=== PATIENT | male | born 1960 | race American Indian/Alaskan Native ===

== ENCOUNTER 2020-11-17 09:49 | Inpatient (IN) | payer OTHER ==
[2020-11-17] MEDS ORDERED: levETIRAcetam 1000 MG/NS 0.75% 1,000 MG/100 ML BAG IV ONE (09:54)
--- NOTE | 2020-11-17 10:00 | Emergency Department Report ---
ED Seizure HPI - General Stated Complaint: SEIZURE Time Seen by Provider: 11/17/20 09:53 Source: EMS Mode of arrival: Stretcher Limitations: Altered Mental Status - History of Present Illness Initial Comments: CC: seizure, altered mental status HPI: This is a 60 yo male with history of cocaine and alcohol dependence who presents with witnessed seizure at custodial. Hx limited due to patient's altered mental status. ED staff member is unable to contact custodialschool psychometrist . Resident of custodial witnessed patient falling to ground with generalized convulsions. Seizure witnessed per EMS upon their arrival. Patient was given 2 mg IV Ativan. Seizure ceased then recurred. Patient did have urinary incontience. Patient is nonverbal only moaning without purposeful movement. MD Complaint: seizure -: Sudden, This morning Description of Episode: loss of consciousness, tonic-clonic movement Witnessed:: Yes Seizure History: other (unknown medical history) Possible Precipitating Event: other (unknown medical history) - Related Data Home Medications Medication Instructions Recorded Confirmed Last Taken No Known Home Medications [No 11/17/20 11/17/20 Unknown Reported Home Medications] Allergies Allergy/AdvReac Type Severity Reaction Status Date / Time No Known Allergies Allergy Verified 11/17/20 10:54 ED Review of Systems ROS: Stated complaint: SEIZURE Other details as noted in HPI Comment: Unobtainable due to pts medical conditions (altered mental status) ED Past Medical Hx - Past Medical History Additional medical history: unable to obtain medical history - Surgical History Additional Surgical History: unable to obtain medical history - Medications Home Medications: Home Medications Medication Instructions Recorded Confirmed Last Taken Type No Known Home Medications [No 11/17/20 11/17/20 Unknown History Reported Home Medications] ED Physical Exam - General Limitations: Altered Mental Status General appearance: lethargic, other (GCS 3, no spontaneous movement, no response to sternal rub, moaning, eyes half-opened) - Head Head exam: Present: atraumatic, normocephalic - Eye Eye exam: Present: normal appearance, PERRL - ENT ENT exam: Present: mucous membranes moist - Neck Neck exam: Present: normal inspection, full ROM - Respiratory Respiratory exam: Present: respiratory distress, other (sonorous respiratons). Absent: wheezes, rales, rhonchi - Cardiovascular Cardiovascular Exam: Present: regular rate, normal rhythm, normal heart sounds - GI/Abdominal GI/Abdominal exam: Present: soft. Absent: distended, tenderness, guarding, rebound - Rectal Rectal exam: Present: normal inspection, other (stool covering buttocks and posterior thighs) - Extremities Exam Extremities exam: Present: normal inspection - Neurological Exam Neurological exam: Present: altered - Psychiatric Psychiatric exam: Present: flat affect - Skin Skin exam: Present: warm, dry, intact, normal color ED Course Vital Signs 11/17/20 11/17/20 11/17/20 10:04 10:20 10:56 Temperature 97.8 F Pulse Rate 95 H 102 H Respiratory 16 Rate Blood Pressure Blood Pressure 118/73 [Left] O2 Sat by Pulse 100 100 100 Oximetry 11/17/20 11:17 Temperature Pulse Rate 105 H Respiratory Rate Blood Pressure 151/84 Blood Pressure [Left] O2 Sat by Pulse 100 Oximetry - Reevaluation(s) Reevaluation #1: 11/17/20 11:23 Shortly after intubation, patient became more alert he moved all 4 extremities. - Intubation Time Out Performed: Yes Sedative: Etomidate Mg Given: 20 Paralytic: Succinylcholine Mg Given: 150 Laryngoscope: Jessika Size: 4 ET Tube Size: 8 Tube Secured Depth (cm): 24 Tube Secured Location: teeth Tube Placement Confirmation: visualized tube passing t Patient Tolerated Procedure: well Intubation Complications: none Additional Comments: ETT was advanced 1 cm ED Medical Decision Making - Lab Data Result diagrams: 11/17/20 10:32 11/17/20 10:32 - EKG Data -: EKG Interpreted by Ny EKG shows normal: sinus rhythm, axis Rate: tachycardia - EKG Data Interpretation: LVH 11/17/20 10:41 EKG obtained 1037 EKG interpreted by id Sinus tachycardia rate 100 bpm normal axis prolonged QTC positive LVH no ST elevation nonspecific T wave pattern - Radiology Data Radiology results: report reviewed, image reviewed CT head/brain wo con INDICATION / CLINICAL INFORMATION: 60 years Male; MAIN. TECHNIQUE: Routine CT head without contrast. All CT scans at this location are performed using CT dose reduction for ALARA by means of automated exposure control. COMPARISON: None. FINDINGS: BRAIN / INTRACRANIAL CONTENTS: Encephalomalacia seen in the right frontal and temporal lobes-would question history of prior trauma. Otherwise, no acute hemorrhage, mass effect, midline shift, hydrocephalus, or acute, large territorial infarct. No signs of significant atrophy or chronic infarct. No significant white matter abnormality seen. CRANIOCERVICAL JUNCTION: No significant abnormality. ORBITS: No significant abnormality of visualized orbits. SINUSES / MASTOIDS: Mild mucosal thickening seen in the ethmoids. There is also mild mucosal thickening suggested in the mastoids. ADDITIONAL FINDINGS: None. IMPRESSION: 1. No focal mass, hemorrhage, hydrocephalus, or acute, large territorial infarct. CXR: no acute findings, ETT 5.5 cm above tamica - Medical Decision Making Status Epilepticus with acute respiratory failure requiring intubation. According to attendant at custodial, patient is homeless. He has dependence to cocaine and alcohol. He left program and return 1 week ago for rehabilitation. This morning, patient was sweeping the floor with a broom. He suddenly fell to the ground and had a seizure. Kaylynn Briscoe I spoke with teleneurologist via phone consultation. Dr. Simmons teleneurologist recommended stat EEG and Keppra twice daily 1 g. Differential diagnosis includes: Seizure disorder due to significant encephalo malacia seen on CT scan, drug-induced seizure, alcohol withdrawal seizure, intentional overdose I have reviewed labs CBC within normal limits, AST ALT elevated. Metabolic acidosis with decreased serum bicarbonate nares mild hypokalemia urine screen negative Admitted to CCU Critical Care Time: Yes Critical care time in (mins) excluding proc time.: 40 Critical care attestation.: If time is entered above; I have spent that time in minutes in the direct care of this critically ill patient, excluding procedure time. 40 minutes of critical care time excluding procedures were used in the care of the patient. I came immediately to the bedside upon patient's arrival. I obtained history from EMS at the bedside. I discussed treatment plan with the nursing team members. I was concerned for airway compromise. Patient required multiple interventions and reassessments. ED Disposition Clinical Impression: Status epilepticus, Acute respiratory failure, Alcohol dependence, Cocaine dependence Disposition: OP ADMIT IP TO THIS HOSP Is pt being admited?: Yes Does the pt Need Aspirin: No Condition: Stable
[2020-11-17 10:39] LABS: Basophils # (Auto) 0.1 K/mm3 (0.0-0.1); Basophils % (Auto) 0.5 % (0.0-1.8); Eosinophils # (Auto) 0.1 K/mm3 (0.0-0.4); Hematocrit 40.1 % (35.5-45.6); Hemoglobin 13.5 gm/dl (11.8-15.2); Lymphocytes # (Auto) 3.6 K/mm3 (1.2-5.4); Lymphocytes % (Auto) 33.6 % (13.4-35.0); Mean Corpuscular HGB Conc 34 % (32-34); Mean Corpuscular Volume 97 fl (84-94); Monocytes # (Auto) 0.6 K/mm3 (0.0-0.8); Monocytes % (Auto) 5.5 % (0.0-7.3); Platelet Count 159 K/mm3 (140-440); Red Blood Count 4.15 M/mm3 (3.65-5.03); Red Cell Distribution Width 13.3 % (13.2-15.2)
[2020-11-17] MEDS ORDERED: ETOMIDATE 20 MG/10 ML INJ IV ONE (10:41)
[2020-11-17] MEDS ORDERED: SUCCINYLCHOLINE CHLORIDE 200 MG/10 ML INJ MDV IV ONE (10:41)
[2020-11-17 10:49] LABS: INR 1.07 (0.87-1.13)
[2020-11-17 10:50] LABS: Partial Thromboplastin Time 28.4 Sec. (24.2-36.6); Thrombin Time 20.3 Sec. (15.1-19.6)
--- NOTE | 2020-11-17 10:52 | Cat Scan Report ---
CT head/brain wo con INDICATION / CLINICAL INFORMATION: 60 years Male; MAIN. TECHNIQUE: Routine CT head without contrast. All CT scans at this location are performed using CT dos e reduction for ALARA by means of automated exposure control. COMPARISON: None. FINDINGS: BRAIN / INTRACRANIAL CONTENTS: Encephalomalacia seen in the right frontal and temporal lobes-would qu estion history of prior trauma. Otherwise, no acute hemorrhage, mass effect, midline shift, hydrocephalus, or acute, large territori al infarct. No signs of significant atrophy or chronic infarct. No significant white matter abnormali ty seen. CRANIOCERVICAL JUNCTION: No significant abnormality. ORBITS: No significant abnormality of visualized orbits. SINUSES / MASTOIDS: Mild mucosal thickening seen in the ethmoids. There is also mild mucosal thickeni ng suggested in the mastoids. ADDITIONAL FINDINGS: None. IMPRESSION: 1. No focal mass, hemorrhage, hydrocephalus, or acute, large territorial infarct. CODE STROKE: Exam Completed (SEED TESTER/CDT): 11/17/2020 9:22 AM Exam Reviewed (SEED TESTER/CDT): 9:40 AM Time of Communication (SEED TESTER/CDT): 9:46 AM Person Receiving Report: huong Grissom for Dr. Gomes Signer Name: Ryan Jeff MD, III Signed: 11/17/2020 10:47 AM Workstation Name: [id number]
[2020-11-17] MEDS ORDERED: LIP THERAPY VASELINE TP PRN (10:58)
[2020-11-17] MEDS ORDERED: MINERAL OIL/PETROLATUM, WHITE OPHTH OINT 3.5 GM OU PRN (10:58)
[2020-11-17 10:59] LABS: Bilirubin,Urine NEG (Negative); Blood,Urine SM (Negative); Color,Urine Yellow (Yellow); Hyaline Casts,Urine 8 /LPF; Mucus,Urine FEW /HPF; Sperm,Urine 3+ /HPF (NP); Urobilinogen,Urine < 2.0 mg/dL (<2.0)
[2020-11-17 11:01] LABS: Alanine Aminotransferase 135 units/L (7-56); Albumin 4.3 g/dL (3.9-5); BUN/Creatinine Ratio 9; Blood Urea Nitrogen 13 mg/dL (9-20); Calcium 8.6 mg/dL (8.4-10.2); Hemolysis Index 8
[2020-11-17 11:07] LABS: Amphetamine Screen,Urine Negative; Benzodiazepines Screen,Urine Negative; Cocaine Screen,Urine Negative; Methadone Screen,Urine Negative; Opiate Screen,Urine Negative
--- NOTE | 2020-11-17 11:21 | Emergency Department Report ---
Blank Doc - Documentation Documentation: [facility] Consult Note # Demographics Consult Type: Phone Only First Name: Mera Last Name: Octavia Date of : 1960 Age: 60 Gender: male Time of initial page (Bonita Time): 11-17-2020, 08:25 Time of return call (Bonita Time): 11-17-2020, 08:26 Phone Only Consult: 60yo M presents with seizure for at least 10 minutes. treated with 2mg of ativan. moaning only currently. given keppra 1gm recommend STAT EEG, if still having seizure will need cEEG and more AEDs such as fosphenytoin 20mg/kg. # Data Head CT: encephalomalacia # Assessment Impression: Seizure # Plan Diagnostic Test: EEG Medication: levetiracetam (Keppra) 1000 mg twice daily Other: seizure precautions, I have discussed my recommendations with the referring provider Disposition: admit # [employer] Telemedicine: phone only
--- NOTE | 2020-11-17 11:27 | XRay Report ---
CHEST 1 VIEW 11/17/2020 11:18 AM INDICATION / CLINICAL INFORMATION: ETT placement. COMPARISON: None available. FINDINGS: SUPPORT DEVICES: An ET tube terminates 5.5 cm above the tamica. HEART / MEDIASTINUM: No significant abnormality. LUNGS / PLEURA: Clear lungs. No significant pleural effusion. No pneumothorax. ADDITIONAL FINDINGS: No significant additional findings. IMPRESSION: 1. No acute abnormality of the chest. 2. Satisfactory positioning of the ET tube. Signer Name: Mati Gamez MD Signed: 11/17/2020 11:23 AM Workstation Name: [id number]
[2020-11-17 11:28] LABS: Cannabinoid Screen,Urine Negative
[2020-11-17] MEDS ORDERED: MIDAZOLAM 2 MG/2 ML INJ IV PRN (12:09)
[2020-11-17] MEDS ORDERED: HYDROmorphone 1 MG/1 ML INJ IV PRN (12:55)
[2020-11-17] MEDS ORDERED: SODIUM CHLORIDE 0.9% 1000 ML 1,000 ML IV ONE (12:55)
[2020-11-17] MEDS ORDERED: MIDAZOLAM 100 MG in SODIUM CHLORIDE 0.9% 80 ML IV SCH (13:00)
[2020-11-17 13:22] LABS: ABG Base Excess -0.6 mmol/L (-2.0-3.0); ABG HCO3 24.8 mmol/L (20.0-26.0); ABG Methemoglobin 0.5 % (0.0-1.5); ABG Oxygen Saturation 99.1 % (95.0-99.0); ABG PH 7.369 pH Units (7.350-7.450); ABG PO2 185.6 mm Hg (80.0-90.0)
--- NOTE | 2020-11-17 16:15 | Consultation ---
History of Present Illness Consult date: 11/17/20 Reason for consult: other (resp fail, intubated Sz ) History of present illness: 11/17/20 see ER notes 60 yo M had sz and fell was unresponsive but woke up when/after intubation req'd sedation now on vent/sedated stable vs no other history avail apparently EhOH/cocaine history? Medications and Allergies Allergies Allergy/AdvReac Type Severity Reaction Status Date / Time No Known Allergies Allergy Verified 11/17/20 10:54 Home Medications Medication Instructions Recorded Confirmed Last Taken Type No Known Home Medications [No 11/17/20 11/17/20 Unknown History Reported Home Medications] Active Meds: Active Medications Hydromorphone HCl (Hydromorphone 1 Mg/1 Ml Inj) 0.5 mg IV ONCE PRN PRN Reason: Pain , Severe (7-10) Hydrophilic Ointment (Lip Therapy Vaseline) 1 applic TP Q2HR PRN PRN Reason: Dry Lips Propofol (Diprivan 10 Mg/Ml) 1,000 mg in 100 mls @ 2.25 mls/hr IV TITR JOSE G; Protocol Last Titration: 11/17/20 14:14 Dose: 50 mcg/kg/min, 22.5 mls/hr Documented by: Midazolam HCl 100 mg/ Sodium (Chloride) 100 mls @ 2 mls/hr IV TITR JOSE G; Protocol Last Titration: 11/17/20 15:06 Dose: 3 mg/hr, 3 mls/hr Documented by: Sodium Chloride (Nacl 0.9% 1000 Ml) 1,000 mls @ 150 mls/hr IV ONCE ONE Stop: 11/17/20 19:34 Last Admin: 11/17/20 13:20 Dose: 150 mls/hr Documented by: Midazolam HCl (Midazolam 2 Mg/2 Ml Inj) 2 mg IV Q10MIN PRN PRN Reason: Sedation Multi-Ingred Cream/Lotion/Oil/Oint (Mineral Oil/Petrolatum, White Ophth Oint 3.5 Gm) 1 applic OU Q4HR PRN PRN Reason: Dry Eye(s) Review of Systems ROS unobtainable: due to endotracheal tube, due to mental status Physical Examination Vital signs: Vital Signs Pulse Ox 100 11/17/20 10:04 General appearance: other (sedated, unresponsive intubated) ENT: other (intubated) Ascultation: Bilateral: diminished breath sounds Musculoskeletal: no deformities non-focal exam, unable to assess, other (unresponsive) Results - Laboratory Findings CBC and BMP: 11/17/20 10:32 11/17/20 10:32 ABG ABG pH 7.369 pH Units (7.350-7.450) 11/17/20 13:15 ABG pCO2 44.0 mm Hg 11/17/20 13:15 ABG pO2 185.6 mm Hg (80.0-90.0) H 11/17/20 13:15 ABG O2 Saturation 99.1 % (95.0-99.0) H 11/17/20 13:15 PT/INR, D-dimer PT 13.8 Sec. (12.2-14.9) 11/17/20 10:32 INR 1.07 (0.87-1.13) 11/17/20 10:32 Abnormal lab findings: Abnormal Labs 11/17/20 11/17/20 11/17/20 09:57 10:32 10:32 MCV 97 H MCH 33 H Thrombin Time 20.3 H ABG pO2 ABG O2 Saturation ABG Hemoglobin Potassium Carbon Dioxide Creatinine Glucose POC Glucose 191 H AST ALT Salicylates Acetaminophen 11/17/20 11/17/20 11/17/20 10:32 10:32 10:32 MCV MCH Thrombin Time ABG pO2 ABG O2 Saturation ABG Hemoglobin Potassium 3.3 L Carbon Dioxide 16 L Creatinine 1.4 H Glucose 235 H POC Glucose AST 125 H ALT 135 H Salicylates < 0.3 L Acetaminophen 5.0 L 11/17/20 13:15 MCV MCH Thrombin Time ABG pO2 185.6 H ABG O2 Saturation 99.1 H ABG Hemoglobin 13.1 L Potassium Carbon Dioxide Creatinine Glucose POC Glucose AST ALT Salicylates Acetaminophen - Diagnostic Findings Chest x-ray: image reviewed (ET clear ) Assessment and Plan 11/17 encephalopathy sedation intubation w/up in progress stable vs continue vent support etc try to get further info
[2020-11-17] MEDS: fentaNYL 100 MCG/2 ML INJ IV PRN ×2 (17:44→23:08)
[2020-11-17] MEDS ORDERED: fentaNYL DRIP Premix 2,000 MCG/100 ML BAG IV SCH (18:00)
--- NOTE | 2020-11-17 18:36 | History and Physical Report ---
History of Present Illness Date of examination: 11/17/20 Date of admission: 11/17/20 12:02 Chief complaint: Altered mental status and seizures since a.m. History of present illness: 50-year-old male with a history of alcohol dependence who lives at a [facility]. Since a.m. patient has been having recurrent seizures with altered sensorium. In the ER patient was having seizures and altered sensorium. Was intubated because of protection of airway. No fever or chills. No exposure to coronavirus. No known exacerbating or relieving factors. - Past Medical History unable to obtain medical history - Surgical History Additional Surgical History: unable to obtain medical history - Medications Home Medications: Home Medications Medication Instructions Recorded Confirmed Last Taken Type No Known Home Medications [No 11/17/20 11/17/20 Unknown History Reported Home Medications] Review of Systems ROS: Constitutional seizures and altered sensorium HEENT no sore throat no post nasal drip no diplopia Neck no neck stiffness no lymph gland enlargement Chest and lungs no shortness of breath cough or wheezing CVS no chest pain no diaphoresis no palpitations GI no nausea no vomiting no diarrhea Genitourinary system no dysuria no flank pain Musculoskeletal system no muscle pains no joint pains [employer] no syncope no seizures Skin no rash no itching Psychiatric seizures and altered sensorium Hematologic no lymphedema or bruising Endocrine no polydipsia no polyuria no cold intolerance no heat intolerance Medications and Allergies Allergies Allergy/AdvReac Type Severity Reaction Status Date / Time No Known Allergies Allergy Verified 11/17/20 10:54 Home Medications Medication Instructions Recorded Confirmed Last Taken Type No Known Home Medications [No 11/17/20 11/17/20 Unknown History Reported Home Medications] Active Meds: Active Medications Fentanyl (Fentanyl 100 Mcg/2 Ml Inj) 50 mcg IV Q10MIN PRN PRN Reason: ANALGESIA Last Admin: 11/17/20 17:44 Dose: 50 mcg Documented by: Hydromorphone HCl (Hydromorphone 1 Mg/1 Ml Inj) 0.5 mg IV ONCE PRN PRN Reason: Pain , Severe (7-10) Hydrophilic Ointment (Lip Therapy Vaseline) 1 applic TP Q2HR PRN PRN Reason: Dry Lips Propofol (Diprivan 10 Mg/Ml) 1,000 mg in 100 mls @ 2.25 mls/hr IV TITR JOSE G; P rotocol Last Titration: 11/17/20 14:14 Dose: 50 mcg/kg/min, 22.5 mls/hr Documented by: Midazolam HCl 100 mg/ Sodium (Chloride) 100 mls @ 2 mls/hr IV TITR JOSE G; Protocol Last Titration: 11/17/20 15:06 Dose: 3 mg/hr, 3 mls/hr Documented by: Sodium Chloride (Nacl 0.9% 1000 Ml) 1,000 mls @ 150 mls/hr IV ONCE ONE Stop: 11/17/20 19:34 Last Admin: 11/17/20 13:20 Dose: 150 mls/hr Documented by: Fentanyl Citrate (Fentanyl Drip Premix) 2,000 mcg in 100 mls @ 3.75 mls/hr IV TITR JOSE G; Protocol Last Admin: 11/17/20 17:43 Dose: 1 mcg/kg/hr, 3.75 mls/hr Documented by: Midazolam HCl (Midazolam 2 Mg/2 Ml Inj) 2 mg IV Q10MIN PRN PRN Reason: Sedation Multi-Ingred Cream/Lotion/Oil/Oint (Mineral Oil/Petrolatum, White Ophth Oint 3.5 Gm) 1 applic OU Q4HR PRN PRN Reason: Dry Eye(s) Exam - Constitutional Vitals: Temp Pulse Resp BP Pulse Ox 97.8 F 70 18 131/82 100 11/17/20 10:56 11/17/20 18:07 11/17/20 18:07 11/17/20 17:46 11/17/20 18:07 General appearance: Present: no acute distress, well-nourished - EENT Eyes: Present: PERRL ENT: hearing intact, clear oral mucosa - Neck Neck: Present: supple, normal ROM - Respiratory Respiratory effort: normal Respiratory: bilateral: CTA - Cardiovascular Heart rate: 78 Rhythm: regular Heart Sounds: Present: S1 & S2. Absent: rub, click - Extremities Extremities: pulses symmetrical, No edema Peripheral Pulses: within normal limits - Abdominal General gastrointestinal: Present: soft, non-tender, non-distended, normal bowel sounds Male genitourinary: Present: normal - Rectal Rectal Exam: deferred - Integumentary Integumentary: Present: clear, warm, dry - Musculoskeletal Musculoskeletal: gait normal, strength equal bilaterally - Psychiatric Psychiatric: appropriate mood/affect, intact judgment & insight - Neurologic Neurologic: CNII-XII intact, moves all extremities HEART Score - HEART Score Troponin: Troponin T < 0.010 ng/mL (0.00-0.029) 11/17/20 10:32 Results - Labs CBC & Chem 7: 11/18/20 04:27 11/18/20 04:27 Labs: Laboratory Last Values WBC 10.9 K/mm3 (4.5-11.0) 11/17/20 10:32 RBC 4.15 M/mm3 (3.65-5.03) 11/17/20 10:32 Hgb 13.5 gm/dl (11.8-15.2) 11/17/20 10:32 Hct 40.1 % (35.5-45.6) 11/17/20 10:32 MCV 97 fl (84-94) H 11/17/20 10:32 MCH 33 pg (28-32) H 11/17/20 10:32 MCHC 34 % (32-34) 11/17/20 10:32 RDW 13.3 % (13.2-15.2) 11/17/20 10:32 Plt Count 159 K/mm3 (140-440) 11/17/20 10:32 Lymph % (Auto) 33.6 % (13.4-35.0) 11/17/20 10:32 [place] % (Auto) 5.5 % (0.0-7.3) 11/17/20 10:32 Eos % (Auto) 1.0 % (0.0-4.3) 11/17/20 10:32 Baso % (Auto) 0.5 % (0.0-1.8) 11/17/20 10:32 Lymph # (Auto) 3.6 K/mm3 (1.2-5.4) 11/17/20 10:32 [place] # (Auto) 0.6 K/mm3 (0.0-0.8) 11/17/20 10:32 Eos # (Auto) 0.1 K/mm3 (0.0-0.4) 11/17/20 10:32 Baso # (Auto) 0.1 K/mm3 (0.0-0.1) 11/17/20 10:32 Seg Neutrophils % 59.4 % (40.0-70.0) 11/17/20 10:32 Seg Neutrophils # 6.4 K/mm3 (1.8-7.7) 11/17/20 10:32 PT 13.8 Sec. (12.2-14.9) 11/17/20 10:32 INR 1.07 (0.87-1.13) 11/17/20 10:32 APTT 28.4 Sec. (24.2-36.6) 11/17/20 10:32 Thrombin Time 20.3 Sec. (15.1-19.6) H 11/17/20 10:32 ABG pH 7.369 pH Units (7.350-7.450) 11/17/20 13:15 ABG pCO2 44.0 mm Hg 11/17/20 13:15 ABG pO2 185.6 mm Hg (80.0-90.0) H 11/17/20 13:15 ABG HCO3 24.8 mmol/L (20.0-26.0) 11/17/20 13:15 ABG O2 Saturation 99.1 % (95.0-99.0) H 11/17/20 13:15 ABG O2 Content 18.2 (0.0-44) 11/17/20 13:15 ABG Base Excess -0.6 mmol/L (-2.0-3.0) 11/17/20 13:15 ABG Hemoglobin 13.1 gm/dl (14.0-18.0) L 11/17/20 13:15 ABG Carboxyhemoglobin 1.4 % (0.0-5.0) 11/17/20 13:15 ABG Methemoglobin 0.5 % (0.0-1.5) 11/17/20 13:15 Oxyhemoglobin 97.2 % (95.0-99.0) 11/17/20 13:15 FiO2 40 % 11/17/20 13:15 Sodium 138 mmol/L (137-145) 11/17/20 10:32 Potassium 3.3 mmol/L (3.6-5.0) L 11/17/20 10:32 Chloride 99.0 mmol/L (98-107) 11/17/20 10:32 Carbon Dioxide 16 mmol/L (22-30) L 11/17/20 10:32 Anion Gap 26 mmol/L 11/17/20 10:32 BUN 13 mg/dL (9-20) 11/17/20 10:32 Creatinine 1.4 mg/dL (0.8-1.3) H 11/17/20 10:32 Estimated GFR > 60 ml/min 11/17/20 10:32 BUN/Creatinine Ratio 9 % 11/17/20 10:32 Glucose 235 mg/dL (75-100) H 11/17/20 10:32 POC Glucose 191 mg/dL (70-105) H 11/17/20 09:57 Calcium 8.6 mg/dL (8.4-10.2) 11/17/20 10:32 Total Bilirubin 0.60 mg/dL (0.1-1.2) 11/17/20 10:32 AST 125 units/L (5-40) H 11/17/20 10:32 ALT 135 units/L (7-56) H 11/17/20 10:32 Alkaline Phosphatase 102 units/L (35-129) 11/17/20 10:32 Troponin T < 0.010 ng/mL (0.00-0.029) 11/17/20 10:32 Total Protein 7.4 g/dL (6.3-8.2) 11/17/20 10:32 Albumin 4.3 g/dL (3.9-5) 11/17/20 10:32 Albumin/Globulin Ratio 1.4 % 11/17/20 10:32 Urine Color Yellow (Yellow) 11/17/20 Unknown Urine Turbidity Slightly-cloudy (Clear) 11/17/20 Unknown Urine pH 6.0 (5.0-7.0) 11/17/20 Unknown Ur Specific [place] 1.012 (1.003-1.030) 11/17/20 Unknown Urine Protein 30 mg/dl mg/dL (Negative) 11/17/20 Unknown Urine Glucose (UA) 50 mg/dL (Negative) 11/17/20 Unknown Urine Ketones Neg mg/dL (Negative) 11/17/20 Unknown Urine Blood Sm (Negative) 11/17/20 Unknown Urine Nitrite Neg (Negative) 11/17/20 Unknown Urine Bilirubin Neg (Negative) 11/17/20 Unknown Urine Urobilinogen < 2.0 mg/dL (<2.0) 11/17/20 Unknown Ur Leukocyte Esterase Neg (Negative) 11/17/20 Unknown Urine WBC (Auto) 1.0 /HPF (0.0-6.0) 11/17/20 Unknown Urine RBC (Auto) 2.0 /HPF (0.0-6.0) 11/17/20 Unknown Hyaline Casts 8 /LPF 11/17/20 Unknown Urine Mucus Few /HPF 11/17/20 Unknown Urine Sperm 3+ /HPF (SET UP [employer] MACHINE) 11/17/20 Unknown Salicylates < 0.3 mg/dL (2.8-20.0) L 11/17/20 10:32 Urine Opiates Screen Negative 11/17/20 Unknown Urine Methadone Screen Negative 11/17/20 Unknown Acetaminophen 5.0 ug/mL (10.0-30.0) L 11/17/20 10:32 Ur Barbiturates Screen Negative 11/17/20 Unknown Ur Phencyclidine Scrn Negative 11/17/20 Unknown Ur Amphetamines Screen Negative 11/17/20 Unknown U Benzodiazepines Scrn Negative 11/17/20 Unknown Urine Cocaine Screen Negative 11/17/20 Unknown U Marijuana (THC) Screen Negative 11/17/20 Unknown Drugs of Abuse Note Disclamer 11/17/20 Unknown Plasma/Serum Alcohol < 0.01 % (0-0.07) 11/17/20 10:32 Short CBC 11/17/20 11/18/20 Range/Units 10:32 04:27 WBC 10.9 12.3 H (4.5-11.0) K/mm3 Hgb 13.5 13.1 (11.8-15.2) gm/dl Hct 40.1 40.0 (35.5-45.6) % Plt Count 159 129 L (140-440) K/mm3 BMP 11/17/20 11/18/20 10:32 04:27 Sodium 138 140 Potassium 3.3 L 3.9 Chloride 99.0 108.3 H Carbon Dioxide 16 L 19 L BUN 13 8 L Creatinine 1.4 H 0.8 Glucose 235 H 90 Calcium 8.6 8.4 Cardiac Enzymes 11/17/20 Range/Units 10:32 Troponin T < 0.010 (0.00-0.029) ng/mL Liver Function 11/17/20 11/18/20 Range/Units 10:32 04:27 Total Bilirubin 0.60 0.80 (0.1-1.2) mg/dL AST 125 H 84 H (5-40) units/L ALT 135 H 103 H (7-56) units/L Alkaline Phosphatase 102 61 (35-129) units/L Albumin 4.3 3.8 L (3.9-5) g/dL Urine 11/17/20 Range/Units Unknown Urine Color Yellow (Yellow) Urine pH 6.0 (5.0-7.0) Ur Specific [place] 1.012 (1.003-1.030) Urine Protein 30 mg/dl (Negative) mg/dL Urine Glucose (UA) 50 (Negative) mg/dL - Imaging and Cardiology CT Scan - head: report reviewed Imaging and Cardiology: Chest x-ray No acute abnormalities Satisfactory positioning of the ET tube Head CT No acute findings Assessment and Plan Assessment and plan: Critical care statement The high probability OF a clinically significant sudden or life-threatening deterioration of the cardiorespiratory system and endocrine system required my full and direct attention, intervention and postoperative management. The aggregate critical care time was 40 minutes. The time is in addition to time spent performing reported procedures but includes the followin: Data review and interpretation 2: Patient assessment and monitoring of vital signs 3: Documentation 4:: Medication orders and management Advance Directives: Yes VTE prophylaxis?: Chemical (Full code) Plan of care discussed with patient/family: Yes - Patient Problems (1) Acute encephalopathy Current Visit: Yes Status: Acute Plan to address problem: Secondary to recurrent seizures No metabolic causes (2) Status epilepticus Current Visit: Yes Status: Acute Plan to address problem: IV Keppra and IV Vimpat if necessary (3) Respiratory failure with hypoxia Current Visit: Yes Status: Acute Qualifiers: Chronicity: acute Qualified Code(s): J96.01 - Acute respiratory failure with hypoxia Plan to address problem: Patient intubated for protection of airway Vent management [employer] consulted (4) Alcohol dependence Current Visit: Yes Status: Chronic Plan to address problem: CIWA protocol initiated (5) Cocaine dependence Current Visit: Yes Status: Chronic Plan to address problem: Patient to be counseled about cocaine dependence On CIWA protocol for alcohol dependence (6) DVT prophylaxis Current Visit: Yes Status: Acute Plan to address problem: On heparin and GI prophylaxis
[2020-11-17] MEDS ORDERED: MORPHINE 2 MG/1 ML INJ IV PRN (18:38)
[2020-11-17] MEDS ORDERED: ACETAMINOPHEN 325 MG TAB PO PRN (18:38)
[2020-11-17] MEDS ORDERED: METOCLOPRAMIDE 10 MG/2 ML INJ IV PRN (18:38)
[2020-11-17] MEDS ORDERED: ONDANSETRON 4 MG/2 ML INJ IV PRN (18:38)
[2020-11-17] MEDS ORDERED: SODIUM BICARBONATE 325 MG TAB FEEDTUBE PRN (18:44)
[2020-11-17] MEDS ORDERED: SIMPLE SYRUP 15 ML FEEDTUBE PRN ×2 (18:44)
[2020-11-17] MEDS ORDERED: LIPASE 10,500/PROTEASE 25,000/AMYLASE 43,750 (UNITS) DR CAP FEEDTUBE PRN (18:44)
[2020-11-17] MEDS ORDERED: SODIUM CHLORIDE 0.9% 1000 ML 1,000 ML IV SCH (18:45)
[2020-11-17] MEDS: FAMOTIDINE 20 MG/2 ML INJ IV SCH (22:37)
[2020-11-18] MEDS ORDERED: SODIUM BICARBONATE 325 MG TAB FEEDTUBE PRN ×2 (00:15→11:03)
[2020-11-18] MEDS ORDERED: SIMPLE SYRUP 15 ML FEEDTUBE PRN ×4 (00:15→11:03)
[2020-11-18] MEDS ORDERED: LIPASE 10,500/PROTEASE 25,000/AMYLASE 43,750 (UNITS) DR CAP FEEDTUBE PRN ×2 (00:15→11:03)
[2020-11-18] MEDS: INSULIN LISPRO 100 UNIT/ML SUB-Q SCH ×2 (01:45→10:51)
--- NOTE | 2020-11-18 02:20 | XRay Report ---
. XR chest 1V ap INDICATION / CLINICAL INFORMATION: follow up respiratory failure. COMPARISON: Radiograph from yesterday. FINDINGS: SUPPORT DEVICES: Endotracheal tube terminates appropriately at the level of the clavicular heads. En teric tube courses beneath the diaphragm. HEART / MEDIASTINUM: Unchanged. LUNGS / PLEURA: Lung parenchyma is not significantly changed. No pneumothorax. ADDITIONAL FINDINGS: No significant additional findings. IMPRESSION: 1. Interval placement of enteric tube which is coursing beneath the diaphragm. Side-port is just bene ath the GE junction. Otherwise, no change. Signer Name: Carlos Riley MD Signed: 11/18/2020 2:16 AM Workstation Name: [id number]
[2020-11-18] MEDS: levETIRAcetam 1,000 MG in DEXTROSE 5% IN WATER 100 ML IV SCH ×3 (02:24→22:26)
[2020-11-18] MEDS: POTASSIUM CHLORIDE 10 MEQ 10 MEQ/100 ML BAG IV SCH ×2 (02:24→08:49)
[2020-11-18] MEDS: SODIUM CHLORIDE 0.9% 1000 ML 1,000 ML IV SCH ×2 (02:40→06:08)
[2020-11-18 04:53] LABS: Basophils % (Auto) 0.4 % (0.0-1.8); Eosinophils % (Auto) 0.2 % (0.0-4.3); Hemoglobin 13.1 gm/dl (11.8-15.2); Lymphocytes % (Auto) 8.5 % (13.4-35.0); Mean Corpuscular HGB Conc 33 % (32-34); Mean Corpuscular Volume 96 fl (84-94); Monocytes # (Auto) 0.9 K/mm3 (0.0-0.8); Monocytes % (Auto) 7.6 % (0.0-7.3); Platelet Count 129 K/mm3 (140-440); Red Blood Count 4.18 M/mm3 (3.65-5.03); Red Cell Distribution Width 13.4 % (13.2-15.2)
[2020-11-18 05:51] LABS: Alanine Aminotransferase 103 units/L (7-56); Albumin 3.8 g/dL (3.9-5); BUN/Creatinine Ratio 10; Blood Urea Nitrogen 8 mg/dL (9-20); Calcium 8.4 mg/dL (8.4-10.2); Hemolysis Index 16
[2020-11-18] MEDS ORDERED: POTASSIUM CHLORIDE 10 MEQ 10 MEQ/100 ML BAG IV ONE (08:43)
[2020-11-18] MEDS: FAMOTIDINE 20 MG/2 ML INJ IV SCH ×2 (10:30→22:23)
[2020-11-18] MEDS ORDERED: DEXTROSE 50% IN WATER (25GM) 50 ML SYRINGE IV ONE (10:44)
--- NOTE | 2020-11-18 11:58 | Progress Note ---
Assessment and Plan Assessment and plan: Critical care statement The high probability OF a clinically significant sudden or life-threatening dete rioration of the cardiorespiratory system and endocrine system required my full and direct attention, intervention and postoperative management. The aggregate critical care time was 40 minutes. The time is in addition to time spent performing reported procedures but includes the followin: Data review and interpretation 2: Patient assessment and monitoring of vital signs 3: Documentation 4:: Medication orders and management Advance Directives: Yes VTE prophylaxis?: Chemical (Full code) Plan of care discussed with patient/family: Yes - Patient Problems (1) Acute encephalopathy Current Visit: Yes Status: Acute Plan to address problem: Secondary to recurrent seizures UDS negative (2) Status epilepticus Current Visit: Yes Status: Acute Plan to address problem: Continue IV Keppra and IV Vimpat CT head negative for any acute stroke-infarcts or hemorrhage EEG. Patient may need continuous EEG monitoring if EEG shows seizures. MRI brain with and without contrast when more stable Neurology consult placed. However, neurology is not available this weekend (3) Respiratory failure with hypoxia Current Visit: Yes Status: Acute Qualifiers: Chronicity: acute Qualified Code(s): J96.01 - Acute respiratory failure with hypoxia Plan to address problem: Patient intubated for protection of airway Vent management [employer] Clerk on board (4) STEPHANY Current Visit: Yes Status: Chronic Plan to address problem: Secondary to vasomotor nephropathy Renal function improved Continue to monitor renal function (5) Cocaine and alcohol dependence Current Visit: Yes Status: Chronic Plan to address problem: Patient to be counseled about cocaine dependence On CIWA protocol for alcohol dependence (6) DVT prophylaxis Current Visit: Yes Status: Acute Plan to address problem: On heparin and GI prophylaxis History Interval history: 11/18. Patient remains intubated and is on sedatives. Critical care on board. Hospitalist Physical - Physical exam Narrative exam: VITAL SIGNS: Reviewed. GENERAL: Sedated HEAD: No signs of head trauma. EYES: Pupils are equal. Extraocular motions intact. MOUTH: Oropharynx is normal. NECK: No adenopathy, no JVD. CHEST: Chest with diminished breath sounds bilaterally. No wheezes, rales, or rhonchi. CARDIAC: normal S1 and S2, without murmurs, gallops, or rubs. ABDOMEN: Soft, non tender and non distended. No rebound or guarding, and no masses palpated. Bowel Sounds normal. MUSCULOSKELETAL: No edema NEUROLOGIC EXAM: Sedated and intubated SKIN: No obvious lesions - Constitutional Vitals: Temp Pulse Resp BP Pulse Ox 97.6 F 65 18 140/80 100 11/18/20 01:37 11/18/20 11:39 11/18/20 07:58 11/18/20 11:39 11/18/20 11:39 HEART Score - HEART Score Troponin: Troponin T < 0.010 ng/mL (0.00-0.029) 11/17/20 10:32 Results - Labs CBC & Chem 7: 11/18/20 04:27 11/18/20 04:27 Labs: Laboratory Last Values WBC 12.3 K/mm3 (4.5-11.0) H 11/18/20 04:27 RBC 4.18 M/mm3 (3.65-5.03) 11/18/20 04:27 Hgb 13.1 gm/dl (11.8-15.2) 11/18/20 04:27 Hct 40.0 % (35.5-45.6) 11/18/20 04:27 MCV 96 fl (84-94) H 11/18/20 04:27 MCH 31 pg (28-32) 11/18/20 04:27 MCHC 33 % (32-34) 11/18/20 04:27 RDW 13.4 % (13.2-15.2) 11/18/20 04:27 Plt Count 129 K/mm3 (140-440) L 11/18/20 04:27 Lymph % (Auto) 8.5 % (13.4-35.0) L 11/18/20 04:27 [place] % (Auto) 7.6 % (0.0-7.3) H 11/18/20 04:27 Eos % (Auto) 0.2 % (0.0-4.3) 11/18/20 04:27 Baso % (Auto) 0.4 % (0.0-1.8) 11/18/20 04:27 Lymph # (Auto) 1.0 K/mm3 (1.2-5.4) L 11/18/20 04:27 [place] # (Auto) 0.9 K/mm3 (0.0-0.8) H 11/18/20 04:27 Eos # (Auto) 0.0 K/mm3 (0.0-0.4) 11/18/20 04:27 Baso # (Auto) 0.0 K/mm3 (0.0-0.1) 11/18/20 04:27 Seg Neutrophils % 83.3 % (40.0-70.0) H 11/18/20 04:27 Seg Neutrophils # 10.3 K/mm3 (1.8-7.7) H 11/18/20 04:27 PT 13.8 Sec. (12.2-14.9) 11/17/20 10:32 INR 1.07 (0.87-1.13) 11/17/20 10:32 APTT 28.4 Sec. (24.2-36.6) 11/17/20 10:32 Thrombin Time 20.3 Sec. (15.1-19.6) H 11/17/20 10:32 ABG pH 7.378 (7.320-7.450) 11/18/20 04:00 POC ABG pCO2 37.4 mmHg (32.0-48.0) 11/18/20 04:00 ABG pCO2 44.0 mm Hg 11/17/20 13:15 POC ABG pO2 103.8 mmHg (83-108) 11/18/20 04:00 ABG pO2 185.6 mm Hg (80.0-90.0) H 11/17/20 13:15 POC ABG HCO3 21.5 11/18/20 04:00 ABG HCO3 24.8 mmol/L (20.0-26.0) 11/17/20 13:15 ABG O2 Saturation 97.9 (0-100) 11/18/20 04:00 ABG O2 Content 18.2 (0.0-44) 11/17/20 13:15 POC ABG Base Excess -3.1 11/18/20 04:00 ABG Base Excess -0.6 mmol/L (-2.0-3.0) 11/17/20 13:15 ABG Hemoglobin 13.8 (12.0-17.5) 11/18/20 04:00 ABG Carboxyhemoglobin 1.4 % (0.0-5.0) 11/17/20 13:15 ABG Methemoglobin 0.5 % (0.0-1.5) 11/17/20 13:15 ABG Sodium 139.7 mmol/L (136.0-145.0) 11/18/20 04:00 ABG Potassium 3.5 mmol/L (3.40-4.50) 11/18/20 04:00 ABG Chloride 110.0 mmol/L (98-107) H 11/18/20 04:00 ABG Glucose 86 mg/dL (65-95) 11/18/20 04:00 Oxyhemoglobin 97.2 % (95.0-99.0) 11/17/20 13:15 FiO2 40 % 11/17/20 13:15 FiO2 % 30.0 11/18/20 04:00 Sodium 140 mmol/L (137-145) 11/18/20 04:27 Potassium 3.9 mmol/L (3.6-5.0) 11/18/20 04:27 Chloride 108.3 mmol/L (98-107) H 11/18/20 04:27 Carbon Dioxide 19 mmol/L (22-30) L 11/18/20 04:27 Anion Gap 17 mmol/L 11/18/20 04:27 BUN 8 mg/dL (9-20) L 11/18/20 04:27 Creatinine 0.8 mg/dL (0.8-1.3) 11/18/20 04:27 Estimated GFR > 60 ml/min 11/18/20 04:27 BUN/Creatinine Ratio 10 % 11/18/20 04:27 Glucose 90 mg/dL (75-100) 11/18/20 04:27 POC Glucose 59 mg/dL (70-105) L 11/18/20 10:39 Hemoglobin A1c 6.2 % (4-6) H 11/18/20 04:27 Calcium 8.4 mg/dL (8.4-10.2) 11/18/20 04:27 Total Bilirubin 0.80 mg/dL (0.1-1.2) 11/18/20 04:27 AST 84 units/L (5-40) H 11/18/20 04:27 ALT 103 units/L (7-56) H 11/18/20 04:27 Alkaline Phosphatase 61 units/L (35-129) 11/18/20 04:27 Troponin T < 0.010 ng/mL (0.00-0.029) 11/17/20 10:32 Total Protein 6.3 g/dL (6.3-8.2) 11/18/20 04:27 Albumin 3.8 g/dL (3.9-5) L 11/18/20 04:27 Albumin/Globulin Ratio 1.5 % 11/18/20 04:27 Arterial Blood Glucose 86 mg/dL (65-95) 11/18/20 04:00 Arterial Blood Ionized Calcium 4.6 mg/dL (4.6-5.3) 11/18/20 04:00 Urine Color Yellow (Yellow) 11/17/20 Unknown Urine Turbidity Slightly-cloudy (Clear) 11/17/20 Unknown Urine pH 6.0 (5.0-7.0) 11/17/20 Unknown Ur Specific [place] 1.012 (1.003-1.030) 11/17/20 Unknown Urine Protein 30 mg/dl mg/dL (Negative) 11/17/20 Unknown Urine Glucose (UA) 50 mg/dL (Negative) 11/17/20 Unknown Urine Ketones Neg mg/dL (Negative) 11/17/20 Unknown Urine Blood Sm (Negative) 11/17/20 Unknown Urine Nitrite Neg (Negative) 11/17/20 Unknown Urine Bilirubin Neg (Negative) 11/17/20 Unknown Urine Urobilinogen < 2.0 mg/dL (<2.0) 11/17/20 Unknown Ur Leukocyte Esterase Neg (Negative) 11/17/20 Unknown Urine WBC (Auto) 1.0 /HPF (0.0-6.0) 11/17/20 Unknown Urine RBC (Auto) 2.0 /HPF (0.0-6.0) 11/17/20 Unknown Hyaline Casts 8 /LPF 11/17/20 Unknown Urine Mucus Few /HPF 11/17/20 Unknown Urine Sperm 3+ /HPF (O[employer]ATIONAL HE[employer] SAF[employer]Y OFFICER) 11/17/20 Unknown Salicylates < 0.3 mg/dL (2.8-20.0) L 11/17/20 10:32 Urine Opiates Screen Negative 11/17/20 Unknown Urine Methadone Screen Negative 11/17/20 Unknown Acetaminophen 5.0 ug/mL (10.0-30.0) L 11/17/20 10:32 Ur Barbiturates Screen Negative 11/17/20 Unknown Ur Phencyclidine Scrn Negative 11/17/20 Unknown Ur Amphetamines Screen Negative 11/17/20 Unknown U Benzodiazepines Scrn Negative 11/17/20 Unknown Urine Cocaine Screen Negative 11/17/20 Unknown U Marijuana (THC) Screen Negative 11/17/20 Unknown Drugs of Abuse Note Disclamer 11/17/20 Unknown Plasma/Serum Alcohol < 0.01 % (0-0.07) 11/17/20 10:32 Active Medications - Current Medications Current Medications: Generic Name Dose Route Start Last Admin Trade Name Freq PRN Reason Stop Dose Admin Acetaminophen 650 mg 11/17/20 18:38 Acetaminophen 325 Mg Tab PO Q4H PRN Pain MILD(1-3)/Fever >100.5/PALMA Lipase/Protease/Amylase 1 each 11/17/20 18:44 Lipase 10,500/Protease 25,000/Amylase 43,750 (Units) Cap FEEDTUBE PRN PRN For Clogged Feeding Tube Lipase/Protease/Amylase 1 each 11/18/20 11:03 Lipase 10,500/Protease 25,000/Amylase 43,750 (Units) Cap FEEDTUBE PRN PRN For Clogged Feeding Tube Famotidine 20 mg 11/17/20 22:00 11/18/20 10:30 Famotidine 20 Mg/2 Ml Inj IV 20 mg BID JOSE G Administration Fentanyl 50 mcg 11/17/20 17:01 11/17/20 17:44 Fentanyl 100 Mcg/2 Ml Inj IV 50 mcg Q10MIN PRN Administration ANALGESIA Hydromorphone HCl 0.5 mg 11/17/20 12:55 11/17/20 13:08 Hydromorphone 1 Mg/1 Ml Inj IV 0.5 mg ONCE PRN Administration Pain , Severe (7-10) Hydrophilic Ointment 1 applic 11/17/20 10:58 Lip Therapy Vaseline TP Q2HR PRN Dry Lips Propofol 1,000 mg in 100 mls @ 2.25 mls/hr 11/17/20 12:00 11/18/20 06:07 Diprivan 10 Mg/Ml IV 35 mcg/kg/min TITR JOSE G 15.75 mls/hr Administration Protocol 5 MCG/KG/MIN Midazolam HCl 100 mg/ Sodium 100 mls @ 2 mls/hr 11/17/20 13:00 11/17/20 21:22 Chloride IV 2 mg/hr TITR JOSE G 2 mls/hr Titration Protocol 2 MG/HR Fentanyl Citrate 2,000 mcg in 100 mls @ 3.75 mls/hr 11/17/20 18:00 11/17/20 17:43 Fentanyl Drip Premix IV 1 mcg/kg/hr TITR JOSE G 3.75 mls/hr Administration Protocol 1 MCG/KG/HR Levetiracetam 1,000 mg/ 110 mls @ 400 mls/hr 11/18/20 01:00 11/18/20 10:35 Dextrose IV 400 mls/hr Q12HR JOSE G Administration Sodium Chloride 1,000 mls @ 75 mls/hr 11/18/20 00:30 11/18/20 06:08 Nacl 0.9% 1000 Ml IV 75 mls/hr DIRECT JOSE G Administration Dextrose/Sodium Chloride 1,000 mls @ 100 mls/hr 11/18/20 12:00 D5/0.45ns IV DIRECT JOSE G Metoclopramide HCl 10 mg 11/17/20 18:38 Metoclopramide 10 Mg/2 Ml Inj IV Q6H PRN Nausea And Vomiting Midazolam HCl 2 mg 11/17/20 12:09 Midazolam 2 Mg/2 Ml Inj IV Q10MIN PRN Sedation Morphine Sulfate 2 mg 11/17/20 18:38 Morphine 2 Mg/1 Ml Inj IV Q4H PRN Pain, Moderate (4-6) Multi-Ingred Cream/Lotion/Oil/Oint 1 applic 11/17/20 10:58 Mineral Oil/Petrolatum, White Ophth Oint 3.5 Gm OU Q4HR PRN Dry Eye(s) Ondansetron HCl 4 mg 11/17/20 18:38 Ondansetron 4 Mg/2 Ml Inj IV Q8H PRN Nausea And Vomiting Simple Syrup 15 ml 11/17/20 18:44 Simple Syrup 15 Ml FEEDTUBE PRN PRN Hypoglycemia Simple Syrup 30 ml 11/17/20 18:44 Simple Syrup 15 Ml FEEDTUBE PRN PRN Hypoglycemia Simple Syrup 15 ml 11/18/20 11:03 Simple Syrup 15 Ml FEEDTUBE PRN PRN Hypoglycemia Simple Syrup 30 ml 11/18/20 11:03 Simple Syrup 15 Ml FEEDTUBE PRN PRN Hypoglycemia Sodium Bicarbonate 325 mg 11/17/20 18:44 Sodium Bicarbonate 325 Mg Tab FEEDTUBE PRN PRN For Clogged Feeding Tube Sodium Bicarbonate 325 mg 11/18/20 11:03 Sodium Bicarbonate 325 Mg Tab FEEDTUBE PRN PRN For Clogged Feeding Tube Sodium Chloride 10 ml 11/17/20 22:00 11/18/20 10:52 Sodium Chloride 0.9% 10 Ml Flush Syringe IV 10 ml BID JOSE G Administration Sodium Chloride 10 ml 11/17/20 18:38 Sodium Chloride 0.9% 10 Ml Flush Syringe IV PRN PRN LINE FLUSH Nutrition/Malnutrition Assess - Dietary Evaluation Nutrition/Malnutrition Findings: Nutrition Notes Start: 11/18/20 10:53 Freq: Status: Active Protocol: Document 11/18/20 10:53 ARNOLDO (Rec: 11/18/20 11:03 ARNOLDO [id number]) Nutrition Notes Need for Assessment generated from: MD Order Initial or Follow up Assessment Current Diagnosis Respiratory Failure Other Pertinent Diagnosis AMS, Seizures Current Diet NPO Labs/Tests A1C 6.2 Pertinent Medications Propofol at 15.75ml/hr ( provides 416 kcal), NS at 75ml /hr Height 5 ft 9 in Weight 75 kg [place] Body Weight (kg) 72.72 BMI 24.4 Weight Status Appropriate Subjective/Other Information RD consulted for TF. Pt in ED at this time and is on vent support. PMHx includes EtOH and cocaine dependence. He lives in a ch[facility]. Burn Absent Trauma Absent Minimum of two criteria No #1 Nutrition Diagnosis Inadequate oral intake Etiology mech ventilation As Evidenced by Signs and Symptoms pt NPO Is patient on ventilator? Yes Is Patient Ambulatory and/or Out of Bed No REE-([facility]-confined to bed) 9460.412 Calculation Used for Recommendations [facility] Additional Notes Pro needs 1.2-2g/k-150g/ day Fluid needs 1ml/kcal Nutrition Intervention Nutrition Support: Promote at 75ml/hr with 50ml water flush q4h (Promote has least percentage of fat - pt receiving Propofol ) Kcal 1,800 Protein (gm) 113 Carbohydrates (gm) 234 Fat (gm) 47 Fluid (mL) 1,510 Fiber (gm) 0 Goal #1 TF tolerance Goal #2 TF at goal rate to meet at least 75% energy and pro needs Anticipated Discharge Needs: Unable to determine at this time Follow-Up By: 11/20/20 Additional Comments F/U: new TF, BG labs/need to switch to lower CHO TF formula , vent status, propofol
--- NOTE | 2020-11-18 12:59 | Event Note ---
Date: 11/18/20 Fent off, versed and diprovan still going. Long discussion at bedside with nursing. Asked them to turn of versed and start weaning diprovan. Need to assess neurologic state. Ordered some pRN hydralazine for blood pressure but will likely need more meds. Hopeful to extubate later today if mental status will allow. Also instructed nursing that if patient does have seizure like activity to notify me or if she has any other questions feel free to call. Goal is to get off sedation completely. However if patient does have seizures, whatever dose or med or both that he was on before should be restarted to abort seizure like activity.
--- NOTE | 2020-11-18 13:02 | Progress Note ---
Assessment and Plan Extubate Subjective Date of service: 11/18/20 Interval history: Sedated, not responsive. Minimal vent support. Nursing at bedside. Objective Vital Signs - 12hr 11/18/20 11/18/20 11/18/20 01:37 02:00 03:00 Temperature 97.6 F Pulse Rate 70 70 Respiratory 18 18 Rate Blood Pressure 154/85 171/89 Blood Pressure [Left] O2 Sat by Pulse 100 100 Oximetry 11/18/20 11/18/20 11/18/20 04:00 05:00 05:30 Temperature Pulse Rate 68 78 82 Respiratory 17 18 Rate Blood Pressure 126/71 124/82 147/88 Blood Pressure [Left] O2 Sat by Pulse 100 100 100 Oximetry 11/18/20 11/18/20 11/18/20 06:00 07:58 08:16 Temperature Pulse Rate 85 82 81 Respiratory 18 18 Rate Blood Pressure 147/88 127/81 Blood Pressure 146/87 [Left] O2 Sat by Pulse 100 100 100 Oximetry 11/18/20 11:39 Temperature Pulse Rate 65 Respiratory Rate Blood Pressure 140/80 Blood Pressure [Left] O2 Sat by Pulse 100 Oximetry Constitutional: other (sedated, unresponsive intubated) ENT: other (intubated) Ascultation: Bilateral: diminished breath sounds Neurologic: non-focal exam, unable to assess, other (unresponsive) CBC and BMP: 11/22/20 05:38 11/25/20 05:19 ABG, PT/INR, D-dimer: ABG ABG pH 7.378 (7.320-7.450) 11/18/20 04:00 POC ABG pCO2 37.4 mmHg (32.0-48.0) 11/18/20 04:00 ABG pCO2 44.0 mm Hg 11/17/20 13:15 POC ABG pO2 103.8 mmHg (83-108) 11/18/20 04:00 ABG pO2 185.6 mm Hg (80.0-90.0) H 11/17/20 13:15 POC ABG HCO3 21.5 11/18/20 04:00 ABG O2 Saturation 97.9 (0-100) 11/18/20 04:00 PT/INR, D-dimer PT 13.8 Sec. (12.2-14.9) 11/17/20 10:32 INR 1.07 (0.87-1.13) 11/17/20 10:32 Abnormal lab findings: Abnormal Labs 11/17/20 11/17/20 11/17/20 09:57 10:32 10:32 WBC MCV 97 H MCH 33 H Plt Count Lymph % (Auto) [place] % (Auto) Lymph # (Auto) [place] # (Auto) Seg Neutrophils % Seg Neutrophils # Thrombin Time 20.3 H ABG pO2 ABG O2 Saturation ABG Hemoglobin ABG Chloride Potassium Chloride Carbon Dioxide BUN Creatinine Glucose POC Glucose 191 H Hemoglobin A1c AST ALT Albumin Salicylates Acetaminophen 11/17/20 11/17/20 11/17/20 10:32 10:32 10:32 WBC MCV MCH Plt Count Lymph % (Auto) [place] % (Auto) Lymph # (Auto) [place] # (Auto) Seg Neutrophils % Seg Neutrophils # Thrombin Time ABG pO2 ABG O2 Saturation ABG Hemoglobin ABG Chloride Potassium 3.3 L Chloride Carbon Dioxide 16 L BUN Creatinine 1.4 H Glucose 235 H POC Glucose Hemoglobin A1c AST 125 H ALT 135 H Albumin Salicylates < 0.3 L Acetaminophen 5.0 L 11/17/20 11/18/20 11/18/20 13:15 04:00 04:27 WBC 12.3 H MCV 96 H MCH Plt Count 129 L Lymph % (Auto) 8.5 L [place] % (Auto) 7.6 H Lymph # (Auto) 1.0 L [place] # (Auto) 0.9 H Seg Neutrophils % 83.3 H Seg Neutrophils # 10.3 H Thrombin Time ABG pO2 185.6 H ABG O2 Saturation 99.1 H ABG Hemoglobin 13.1 L ABG Chloride 110.0 H Potassium Chloride Carbon Dioxide BUN Creatinine Glucose POC Glucose Hemoglobin A1c AST ALT Albumin Salicylates Acetaminophen 11/18/20 11/18/20 11/18/20 04:27 04:27 10:39 WBC MCV MCH Plt Count Lymph % (Auto) [place] % (Auto) Lymph # (Auto) [place] # (Auto) Seg Neutrophils % Seg Neutrophils # Thrombin Time ABG pO2 ABG O2 Saturation ABG Hemoglobin ABG Chloride Potassium Chloride 108.3 H Carbon Dioxide 19 L BUN 8 L Creatinine Glucose POC Glucose 59 L Hemoglobin A1c 6.2 H AST 84 H ALT 103 H Albumin 3.8 L Salicylates Acetaminophen
[2020-11-18] MEDS: hydrALAZINE 20 MG/1 ML INJ IV SCH ×3 (13:28→22:27)
[2020-11-18] MEDS: fentaNYL 100 MCG/2 ML INJ IV PRN (14:02)
[2020-11-18] MEDS ORDERED: LORazepam 2 MG/ML VIAL IV ONE (21:09)
[2020-11-18] MEDS: amLODIPine 10 MG TAB PO SCH (22:24)
[2020-11-18] MEDS: D5W/0.45% NACL 1,000 ML IV SCH (22:26)
[2020-11-19] MEDS: hydrALAZINE 20 MG/1 ML INJ IV SCH ×5 (03:02→23:21)
[2020-11-19] MEDS: amLODIPine 10 MG TAB PO SCH (09:11)
[2020-11-19] MEDS: FAMOTIDINE 20 MG/2 ML INJ IV SCH ×2 (09:13→23:22)
[2020-11-19] MEDS: levETIRAcetam 1,000 MG in DEXTROSE 5% IN WATER 100 ML IV SCH ×2 (11:44→23:22)
--- NOTE | 2020-11-19 13:17 | Progress Note ---
Assessment and Plan Assessment and plan: Patient Problems (1) Acute encephalopathy Current Visit: Yes Status: Acute Plan to address problem: Resolved Secondary to recurrent seizures UDS negative (2) Status epilepticus Current Visit: Yes Status: Acute Plan to address problem: Continue IV Keppra and IV Vimpat CT head negative for any acute stroke-infarcts or hemorrhage EEG. Patient may need continuous EEG monitoring if EEG shows seizures. MRI brain with and without contrast when more stable Neurology consult placed. However, neurology is not available this weekend (3) Respiratory failure with hypoxia Current Visit: Yes Status: Resolved Qualifiers: Chronicity: acute Qualified Code(s): J96.01 - Acute respiratory failure with hypoxia Plan to address problem: Patient follows intubated for protection of airway Subsequently extubated on 11/18. (4) STEPHANY Current Visit: Yes Status: Chronic Plan to address problem: Secondary to vasomotor nephropathy Renal function improved Continue to monitor renal function (5) Cocaine and alcohol dependence Current Visit: Yes Status: Chronic Plan to address problem: Patient to be counseled about cocaine dependence On CIWA protocol for alcohol dependence (6) DVT prophylaxis Current Visit: Yes Status: Acute Plan to address problem: On heparin and GI prophylaxis History Interval history: 50-year-old male with a history of alcohol dependence who lives at a assisted. Since a.m. patient has been having recurrent seizures with altered sensorium. In the ER patient was having seizures and altered sensorium. Was intubated because of protection of airway. No fever or chills. No exposure to coronavirus. No known exacerbating or relieving factors. Patient was started on antiseizure medications and transferred to the ICU. Hospital course 11/18. Patient remains intubated and is on sedatives. Critical care on board. Remains on Keppra. Neurology consultation placed 11/19. Patient extubated and transferred to the floors today. Remains on Keppra. He denies any history of seizures in the past awaiting EEG and MRI brain. Neurology evaluation Hospitalist Physical - Physical exam Narrative exam: VITAL SIGNS: Reviewed. GENERAL: Awake and alert HEAD: No signs of head trauma. EYES: Pupils are equal. Extraocular motions intact. MOUTH: Oropharynx is normal. NECK: No adenopathy, no JVD. CHEST: Chest with diminished breath sounds bilaterally. No wheezes, rales, or rhonchi. CARDIAC: normal S1 and S2, without murmurs, gallops, or rubs. ABDOMEN: Soft, non tender and non distended. No rebound or guarding, and no masses palpated. Bowel Sounds normal. MUSCULOSKELETAL: No edema NEUROLOGIC EXAM: Awake, alert this a.m. SKIN: No obvious lesions - Constitutional Vitals: Temp Pulse Resp BP Pulse Ox 98.0 F 82 13 118/56 99 11/19/20 04:00 11/19/20 12:00 11/19/20 12:00 11/19/20 12:00 11/19/20 08:00 HEART Score - HEART Score Troponin: Troponin T < 0.010 ng/mL (0.00-0.029) 11/17/20 10:32 Results - Labs CBC & Chem 7: 11/20/20 04:36 11/20/20 04:36 Labs: Laboratory Last Values WBC 12.3 K/mm3 (4.5-11.0) H 11/18/20 04:27 RBC 4.18 M/mm3 (3.65-5.03) 11/18/20 04:27 Hgb 13.1 gm/dl (11.8-15.2) 11/18/20 04:27 Hct 40.0 % (35.5-45.6) 11/18/20 04:27 MCV 96 fl (84-94) H 11/18/20 04:27 MCH 31 pg (28-32) 11/18/20 04:27 MCHC 33 % (32-34) 11/18/20 04:27 RDW 13.4 % (13.2-15.2) 11/18/20 04:27 Plt Count 129 K/mm3 (140-440) L 11/18/20 04:27 Lymph % (Auto) 8.5 % (13.4-35.0) L 11/18/20 04:27 [place] % (Auto) 7.6 % (0.0-7.3) H 11/18/20 04:27 Eos % (Auto) 0.2 % (0.0-4.3) 11/18/20 04:27 Baso % (Auto) 0.4 % (0.0-1.8) 11/18/20 04:27 Lymph # (Auto) 1.0 K/mm3 (1.2-5.4) L 11/18/20 04:27 [place] # (Auto) 0.9 K/mm3 (0.0-0.8) H 11/18/20 04:27 Eos # (Auto) 0.0 K/mm3 (0.0-0.4) 11/18/20 04:27 Baso # (Auto) 0.0 K/mm3 (0.0-0.1) 11/18/20 04:27 Seg Neutrophils % 83.3 % (40.0-70.0) H 11/18/20 04:27 Seg Neutrophils # 10.3 K/mm3 (1.8-7.7) H 11/18/20 04:27 PT 13.8 Sec. (12.2-14.9) 11/17/20 10:32 INR 1.07 (0.87-1.13) 11/17/20 10:32 APTT 28.4 Sec. (24.2-36.6) 11/17/20 10:32 Thrombin Time 20.3 Sec. (15.1-19.6) H 11/17/20 10:32 ABG pH 7.378 (7.320-7.450) 11/18/20 04:00 POC ABG pCO2 37.4 mmHg (32.0-48.0) 11/18/20 04:00 ABG pCO2 44.0 mm Hg 11/17/20 13:15 POC ABG pO2 103.8 mmHg (83-108) 11/18/20 04:00 ABG pO2 185.6 mm Hg (80.0-90.0) H 11/17/20 13:15 POC ABG HCO3 21.5 11/18/20 04:00 ABG HCO3 24.8 mmol/L (20.0-26.0) 11/17/20 13:15 ABG O2 Saturation 97.9 (0-100) 11/18/20 04:00 ABG O2 Content 18.2 (0.0-44) 11/17/20 13:15 POC ABG Base Excess -3.1 11/18/20 04:00 ABG Base Excess -0.6 mmol/L (-2.0-3.0) 11/17/20 13:15 ABG Hemoglobin 13.8 (12.0-17.5) 11/18/20 04:00 ABG Carboxyhemoglobin 1.4 % (0.0-5.0) 11/17/20 13:15 ABG Methemoglobin 0.5 % (0.0-1.5) 11/17/20 13:15 ABG Sodium 139.7 mmol/L (136.0-145.0) 11/18/20 04:00 ABG Potassium 3.5 mmol/L (3.40-4.50) 11/18/20 04:00 ABG Chloride 110.0 mmol/L (98-107) H 11/18/20 04:00 ABG Glucose 86 mg/dL (65-95) 11/18/20 04:00 Oxyhemoglobin 97.2 % (95.0-99.0) 11/17/20 13: FiO2 40 % 11/17/20 13:15 FiO2 % 30.0 11/18/20 04:00 Sodium 140 mmol/L (137-145) 11/18/20 04:27 Potassium 3.9 mmol/L (3.6-5.0) 11/18/20 04:27 Chloride 108.3 mmol/L (98-107) H 11/18/20 04:27 Carbon Dioxide 19 mmol/L (22-30) L 11/18/20 04:27 Anion Gap 17 mmol/L 11/18/20 04:27 BUN 8 mg/dL (9-20) L 11/18/20 04:27 Creatinine 0.8 mg/dL (0.8-1.3) 11/18/20 04:27 Estimated GFR > 60 ml/min 11/18/20 04:27 BUN/Creatinine Ratio 10 % 11/18/20 04:27 Glucose 90 mg/dL (75-100) 11/18/20 04:27 POC Glucose 108 mg/dL (70-105) H 11/19/20 05:29 Hemoglobin A1c 6.2 % (4-6) H 11/18/20 04:27 Calcium 8.4 mg/dL (8.4-10.2) 11/18/20 04:27 Total Bilirubin 0.80 mg/dL (0.1-1.2) 11/18/20 04:27 AST 84 units/L (5-40) H 11/18/20 04:27 ALT 103 units/L (7-56) H 11/18/20 04:27 Alkaline Phosphatase 61 units/L (35-129) 11/18/20 04:27 Troponin T < 0.010 ng/mL (0.00-0.029) 11/17/20 10:32 Total Protein 6.3 g/dL (6.3-8.2) 11/18/20 04:27 Albumin 3.8 g/dL (3.9-5) L 11/18/20 04:27 Albumin/Globulin Ratio 1.5 % 11/18/20 04:27 Arterial Blood Glucose 86 mg/dL (65-95) 11/18/20 04:00 Arterial Blood Ionized Calcium 4.6 mg/dL (4.6-5.3) 11/18/20 04:00 Urine Color Yellow (Yellow) 11/17/20 Unknown Urine Turbidity Slightly-cloudy (Clear) 11/17/20 Unknown Urine pH 6.0 (5.0-7.0) 11/17/20 Unknown Ur Specific [place] 1.012 (1.003-1.030) 11/17/20 Unknown Urine Protein 30 mg/dl mg/dL (Negative) 11/17/20 Unknown Urine Glucose (UA) 50 mg/dL (Negative) 11/17/20 Unknown Urine Ketones Neg mg/dL (Negative) 11/17/20 Unknown Urine Blood Sm (Negative) 11/17/20 Unknown Urine Nitrite Neg (Negative) 11/17/20 Unknown Urine Bilirubin Neg (Negative) 11/17/20 Unknown Urine Urobilinogen < 2.0 mg/dL (<2.0) 11/17/20 Unknown Ur Leukocyte Esterase Neg (Negative) 11/17/20 Unknown Urine WBC (Auto) 1.0 /HPF (0.0-6.0) 11/17/20 Unknown Urine RBC (Auto) 2.0 /HPF (0.0-6.0) 11/17/20 Unknown Hyaline Casts 8 /LPF 11/17/20 Unknown Urine Mucus Few /HPF 11/17/20 Unknown Urine Sperm 3+ /HPF (MAJOR ACCOUNT MANAGER) 11/17/20 Unknown Salicylates < 0.3 mg/dL (2.8-20.0) L 11/17/20 10:32 Urine Opiates Screen Negative 11/17/20 Unknown Urine Methadone Screen Negative 11/17/20 Unknown Acetaminophen 5.0 ug/mL (10.0-30.0) L 11/17/20 10:32 Ur Barbiturates Screen Negative 11/17/20 Unknown Ur Phencyclidine Scrn Negative 11/17/20 Unknown Ur Amphetamines Screen Negative 11/17/20 Unknown U Benzodiazepines Scrn Negative 11/17/20 Unknown Urine Cocaine Screen Negative 11/17/20 Unknown U Marijuana (THC) Screen Negative 11/17/20 Unknown Drugs of Abuse Note Disclamer 11/17/20 Unknown Plasma/Serum Alcohol < 0.01 % (0-0.07) 11/17/20 10:32 Oneil/IV: Voiding Method Indwelling Catheter Active Medications - Current Medications Current Medications: Generic Name Dose Route Start Last Admin Trade Name Freq PRN Reason Stop Dose Admin Acetaminophen 650 mg 11/17/20 18:38 Acetaminophen 325 Mg Tab PO Q4H PRN Pain MILD(1-3)/Fever >100.5/PALMA Amlodipine Besylate 10 mg 11/18/20 14:00 11/19/20 09:11 Amlodipine 10 Mg Tab PO 10 mg QDAY JOSE G Administration Lipase/Protease/Amylase 1 each 11/18/20 11:03 Lipase 10,500/Protease 25,000/Amylase 43,750 (Units) Dr Saunders FEEDTUBE PRN PRN For Clogged Feeding Tube Famotidine 20 mg 11/17/20 22:00 11/19/20 09:13 Famotidine 20 Mg/2 Ml Inj IV 20 mg BID JOSE G Administration Hydralazine HCl 20 mg 11/18/20 14:00 11/19/20 09:13 Hydralazine 20 Mg/1 Ml Inj IV 20 mg Q4HR JOSE G Administration Hydrophilic Ointment 1 applic 11/17/20 10:58 Lip Therapy Vaseline TP Q2HR PRN Dry Lips Levetiracetam 1,000 mg/ 110 mls @ 400 mls/hr 11/18/20 01:00 11/19/20 11:44 Dextrose IV 400 mls/hr Q12HR JOSE G Administration Sodium Chloride 1,000 mls @ 75 mls/hr 11/18/20 00:30 11/18/20 06:08 Nacl 0.9% 1000 Ml IV 75 mls/hr DIRECT JOSE G Administration Dextrose/Sodium Chloride 1,000 mls @ 100 mls/hr 11/18/20 12:00 11/18/20 22:26 D5/0.45ns IV 100 mls/hr DIRECT JOSE G Administration Labetalol HCl 20 mg 11/18/20 12:59 Labetalol 20 Mg/4 Ml Inj IV Q6HR PRN Tachyarrhythmias Metoclopramide HCl 10 mg 11/17/20 18:38 Metoclopramide 10 Mg/2 Ml Inj IV Q6H PRN Nausea And Vomiting Morphine Sulfate 2 mg 11/17/20 18:38 Morphine 2 Mg/1 Ml Inj IV Q4H PRN Pain, Moderate (4-6) Multi-Ingred Cream/Lotion/Oil/Oint 1 applic 11/17/20 10:58 Mineral Oil/Petrolatum, White Ophth Oint 3.5 Gm OU Q4HR PRN Dry Eye(s) Ondansetron HCl 4 mg 11/17/20 18:38 Ondansetron 4 Mg/2 Ml Inj IV Q8H PRN Nausea And Vomiting Simple Syrup 15 ml 11/18/20 11:03 Simple Syrup 15 Ml FEEDTUBE PRN PRN Hypoglycemia Simple Syrup 30 ml 11/18/20 11:03 Simple Syrup 15 Ml FEEDTUBE PRN PRN Hypoglycemia Sodium Bicarbonate 325 mg 11/18/20 11:03 Sodium Bicarbonate 325 Mg Tab FEEDTUBE PRN PRN For Clogged Feeding Tube Sodium Chloride 10 ml 11/17/20 22:00 11/19/20 09:13 Sodium Chloride 0.9% 10 Ml Flush Syringe IV 10 ml BID JOSE G Administration Sodium Chloride 10 ml 11/17/20 18:38 Sodium Chloride 0.9% 10 Ml Flush Syringe IV PRN PRN LINE FLUSH Nutrition/Malnutrition Assess - Dietary Evaluation Nutrition/Malnutrition Findings: Nutrition Notes Start: 11/18/20 10:53 Freq: Status: Active Protocol: Document 11/19/20 12:58 ARNOLDO (Rec: 11/19/20 13:01 ARNOLDO [id number]) Nutrition Notes 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 He was extubated yesterday evening and transferred to medical floor. He has been very combative. Diet has not been advanced yet . BG labs have been <150 since last assessment. Nutrition Intervention Follow-Up By: 11/21/20 Additional Comments F/U: diet advancement, MST assessment
[2020-11-19 16:10] LABS: Basophils % (Auto) 0.3 % (0.0-1.8); Eosinophils % (Auto) 0.3 % (0.0-4.3); Hematocrit 38.1 % (35.5-45.6); Lymphocytes # (Auto) 1.4 K/mm3 (1.2-5.4); Lymphocytes % (Auto) 12.6 % (13.4-35.0); Mean Corpuscular HGB Conc 34 % (32-34); Mean Corpuscular Volume 95 fl (84-94); Monocytes # (Auto) 1.3 K/mm3 (0.0-0.8); Monocytes % (Auto) 11.8 % (0.0-7.3); Platelet Count 121 K/mm3 (140-440); Red Blood Count 4.04 M/mm3 (3.65-5.03); Red Cell Distribution Width 13.1 % (13.2-15.2)
[2020-11-19 16:32] LABS: Alanine Aminotransferase 74 units/L (7-56); Albumin 3.5 g/dL (3.9-5); BUN/Creatinine Ratio 6; Blood Urea Nitrogen 5 mg/dL (9-20); Calcium 8.4 mg/dL (8.4-10.2); Hemolysis Index 5
--- NOTE | 2020-11-19 18:15 | Cat Scan Report ---
CT head/brain wo con INDICATION / CLINICAL INFORMATION: 60 years Male; MAIN. TECHNIQUE: Routine CT head without contrast. All CT scans at this location are performed using CT dos e reduction for ALARA by means of automated exposure control. COMPARISON: The study is compared to the previous CT of 11/17/2020. FINDINGS: BRAIN / INTRACRANIAL CONTENTS: The motion and positioning degrade the image quality. However, there i s continued encephalomalacia involving anterior right frontal and, to lesser degree, anterior tempora l lobe indicative of old trauma given the location. The findings correlate with the previous study. T here otherwise appears be mild cerebral white matter disease compatible with microvascular angiopathy . The ventricular system does not appear to significant changed in size or configuration. There is no c lear CT evidence of acute intracranial hemorrhage or significant mass effect. ORBITS: No significant abnormality of visualized orbits. SINUSES / MASTOIDS: There is mild mucosal thickening within the ethmoid air cells. CRANIOCERVICAL JUNCTION: No significant abnormality. ADDITIONAL FINDINGS: None. IMPRESSION: 1. There is continued encephalomalacia involving anterior right frontal and temporal lobes as detaile d above. 2. There is no CT evidence of acute intracranial hemorrhage. Signer Name: Sammy Sagastume MD Signed: 11/19/2020 6:10 PM Workstation Name: [id number]
[2020-11-19] MEDS ORDERED: LORazepam 2 MG/ML VIAL IV PRN (20:36)
[2020-11-19] MEDS ORDERED: chlordiazePOXIDE 25 MG CAP PO PRN (20:36)
[2020-11-19 21:49] LABS: Albumin 3.5 g/dL (3.9-5); Bilirubin,Direct 0.4 mg/dL (0-0.2)
[2020-11-19] MEDS: LORazepam 2 MG/ML VIAL IV PRN (23:21)
[2020-11-19] MEDS: D5W/0.45% NACL 1,000 ML IV SCH (23:24)
[2020-11-20] MEDS: LORazepam 2 MG/ML VIAL IV PRN ×5 (01:37→23:59)
[2020-11-20] MEDS: hydrALAZINE 20 MG/1 ML INJ IV SCH ×5 (02:32→14:00)
[2020-11-20 05:45] LABS: Alanine Aminotransferase 77 units/L (7-56); Albumin 3.3 g/dL (3.9-5); BUN/Creatinine Ratio 6; Blood Urea Nitrogen 5 mg/dL (9-20); Calcium 8.2 mg/dL (8.4-10.2); Hemolysis Index 8
[2020-11-20 06:42] LABS: Basophils % (Auto) 0.2 % (0.0-1.8); Eosinophils # (Auto) 0.1 K/mm3 (0.0-0.4); Eosinophils % (Auto) 0.5 % (0.0-4.3); Hematocrit 37.6 % (35.5-45.6); Hemoglobin 12.6 gm/dl (11.8-15.2); Lymphocytes # (Auto) 1.7 K/mm3 (1.2-5.4); Lymphocytes % (Auto) 15.7 % (13.4-35.0); Mean Corpuscular HGB Conc 34 % (32-34); Mean Corpuscular Volume 96 fl (84-94); Monocytes # (Auto) 1.2 K/mm3 (0.0-0.8); Monocytes % (Auto) 11.4 % (0.0-7.3); Platelet Count 126 K/mm3 (140-440); Red Blood Count 3.92 M/mm3 (3.65-5.03); Red Cell Distribution Width 13.3 % (13.2-15.2)
[2020-11-20] MEDS: FAMOTIDINE 20 MG/2 ML INJ IV SCH ×2 (10:44→22:52)
[2020-11-20] MEDS: amLODIPine 10 MG TAB PO SCH (10:44)
[2020-11-20] MEDS: SODIUM CHLORIDE 0.9% 1000 ML 1,000 ML IV SCH (11:07)
[2020-11-20] MEDS: levETIRAcetam 1,000 MG in DEXTROSE 5% IN WATER 100 ML IV SCH ×2 (11:19→22:52)
--- NOTE | 2020-11-20 14:28 | Progress Note ---
Assessment and Plan Assessment and plan: Patient Problems (1) Acute encephalopathy Current Visit: Yes Status: Acute Plan to address problem: Resolved Secondary to recurrent seizures UDS negative (2) Status epilepticus Current Visit: Yes Status: Acute Plan to address problem: Continue antiseizure medications CT head negative for any acute stroke-infarcts or hemorrhage EEG. Patient may need continuous EEG monitoring if EEG shows seizures. MRI brain with and without contrast pending Neurology evaluation pending (3) Respiratory failure with hypoxia Resolved (4) STEPHANY Current Visit: Yes Status: Chronic Plan to address problem: Resolved Secondary to vasomotor nephropathy Continue to monitor renal function (4) Hypertension Current Visit: Yes Status: Chronic Plan to address problem: Continue hydralazine Continue valsartan and amlodipine (5) Cocaine and alcohol dependence Current Visit: Yes Status: Chronic Plan to address problem: Patient to be counseled about cocaine dependence On CIWA protocol for alcohol dependence (6) DVT prophylaxis Current Visit: Yes Status: Acute Plan to address problem: On heparin and GI prophylaxis History Interval history: 50-year-old male with a history of alcohol dependence who lives at a [facility]. Since a.m. patient has been having recurrent seizures with altered sensorium. In the ER patient was having seizures and altered sensorium. Was intubated because of protection of airway. No fever or chills. No exposure to coronavirus. No known exacerbating or relieving factors. Patient was started on antiseizure medications and transferred to the ICU. Hospital course 11/18. Patient remains intubated and is on sedatives. Critical care on board. Remains on Keppra. Neurology consultation placed 11/19. Patient extubated and transferred to the floors today. Remains on Keppra. He denies any history of seizures in the past awaiting EEG and MRI brain. Neurology evaluation 11/20. Patient refused MRI yesterday. MRI still to be performed today. Awaiting EEG. Neurology has been consulted. Continue Keppra for now. PT/OT miller cody Hospitalist Physical - Constitutional Vitals: Temp Pulse Resp BP Pulse Ox 97.8 F 89 19 168/77 97 11/20/20 11:49 11/20/20 10:43 11/20/20 11:49 11/20/20 11:49 11/20/20 10:00 General appearance: Present: no acute distress, well-nourished HEART Score - HEART Score Troponin: Troponin T < 0.010 ng/mL (0.00-0.029) 11/17/20 10:32 Results - Labs CBC & Chem 7: 11/20/20 04:36 11/20/20 04:36 Labs: Laboratory Last Values WBC 10.6 K/mm3 (4.5-11.0) 11/20/20 04:36 RBC 3.92 M/mm3 (3.65-5.03) 11/20/20 04:36 Hgb 12.6 gm/dl (11.8-15.2) 11/20/20 04:36 Hct 37.6 % (35.5-45.6) 11/20/20 04:36 MCV 96 fl (84-94) H 11/20/20 04:36 MCH 32 pg (28-32) 11/20/20 04:36 MCHC 34 % (32-34) 11/20/20 04:36 RDW 13.3 % (13.2-15.2) 11/20/20 04:36 Plt Count 126 K/mm3 (140-440) L 11/20/20 04:36 Lymph % (Auto) 15.7 % (13.4-35.0) 11/20/20 04:36 [place] % (Auto) 11.4 % (0.0-7.3) H 11/20/20 04:36 Eos % (Auto) 0.5 % (0.0-4.3) 11/20/20 04:36 Baso % (Auto) 0.2 % (0.0-1.8) 11/20/20 04:36 Lymph # (Auto) 1.7 K/mm3 (1.2-5.4) 11/20/20 04:36 [place] # (Auto) 1.2 K/mm3 (0.0-0.8) H 11/20/20 04:36 Eos # (Auto) 0.1 K/mm3 (0.0-0.4) 11/20/20 04:36 Baso # (Auto) 0.0 K/mm3 (0.0-0.1) 11/20/20 04:36 Seg Neutrophils % 72.2 % (40.0-70.0) H 11/20/20 04:36 Seg Neutrophils # 7.6 K/mm3 (1.8-7.7) 11/20/20 04:36 PT 13.8 Sec. (12.2-14.9) 11/17/20 10:32 INR 1.07 (0.87-1.13) 11/17/20 10:32 APTT 28.4 Sec. (24.2-36.6) 11/17/20 10:32 Thrombin Time 20.3 Sec. (15.1-19.6) H 11/17/20 10:32 ABG pH 7.378 (7.320-7.450) 11/18/20 04:00 POC ABG pCO2 37.4 mmHg (32.0-48.0) 11/18/20 04:00 ABG pCO2 44.0 mm Hg 11/17/20 13:15 POC ABG pO2 103.8 mmHg (83-108) 11/18/20 04:00 ABG pO2 185.6 mm Hg (80.0-90.0) H 11/17/20 13:15 POC ABG HCO3 21.5 11/18/20 04:00 ABG HCO3 24.8 mmol/L (20.0-26.0) 11/17/20 13:15 ABG O2 Saturation 97.9 (0-100) 11/18/20 04:00 ABG O2 Content 18.2 (0.0-44) 11/17/20 13:15 POC ABG Base Excess -3.1 11/18/20 04:00 ABG Base Excess -0.6 mmol/L (-2.0-3.0) 11/17/20 13:15 ABG Hemoglobin 13.8 (12.0-17.5) 11/18/20 04:00 ABG Carboxyhemoglobin 1.4 % (0.0-5.0) 11/17/20 13:15 ABG Methemoglobin 0.5 % (0.0-1.5) 11/17/20 13:15 ABG Sodium 139.7 mmol/L (136.0-145.0) 11/18/20 04:00 ABG Potassium 3.5 mmol/L (3.40-4.50) 11/18/20 04:00 ABG Chloride 110.0 mmol/L (98-107) H 11/18/20 04:00 ABG Glucose 86 mg/dL (65-95) 11/18/20 04:00 Oxyhemoglobin 97.2 % (95.0-99.0) 11/17/20 13:15 FiO2 40 % 11/17/20 13:15 FiO2 % 30.0 11/18/20 04:00 Sodium 140 mmol/L (137-145) 11/20/20 04:36 Potassium 3.2 mmol/L (3.6-5.0) L 11/20/20 04:36 Chloride 106.3 mmol/L (98-107) 11/20/20 04:36 Carbon Dioxide 22 mmol/L (22-30) 11/20/20 04:36 Anion Gap 15 mmol/L 11/20/20 04:36 BUN 5 mg/dL (9-20) L 11/20/20 04:36 Creatinine 0.8 mg/dL (0.8-1.3) 11/20/20 04:36 Estimated GFR > 60 ml/min 11/20/20 04:36 BUN/Creatinine Ratio 6 % 11/20/20 04:36 Glucose 116 mg/dL (75-100) H 11/20/20 04:36 POC Glucose 133 mg/dL (70-105) H 11/20/20 11:46 Hemoglobin A1c 6.2 % (4-6) H 11/18/20 04:27 Calcium 8.2 mg/dL (8.4-10.2) L 11/20/20 04:36 Phosphorus 2.20 mg/dL (2.5-4.5) L 11/19/20 20:57 Magnesium 2.00 mg/dL (1.7-2.3) 11/19/20 20:57 Total Bilirubin 0.80 mg/dL (0.1-1.2) 11/20/20 04:36 Direct Bilirubin 0.4 mg/dL (0-0.2) H 11/19/20 20:57 Indirect Bilirubin 0.5 mg/dL 11/19/20 20:57 AST 109 units/L (5-40) H 11/20/20 04:36 ALT 77 units/L (7-56) H 11/20/20 04:36 Alkaline Phosphatase 50 units/L (35-129) 11/20/20 04:36 Ammonia 25.0 umol/L (25-60) 11/19/20 20:57 Troponin T < 0.010 ng/mL (0.00-0.029) 11/17/20 10:32 Total Protein 6.4 g/dL (6.3-8.2) 11/20/20 04:36 Albumin 3.3 g/dL (3.9-5) L 11/20/20 04:36 Albumin/Globulin Ratio 1.1 % 11/20/20 04:36 Arterial Blood Glucose 86 mg/dL (65-95) 11/18/20 04:00 Arterial Blood Ionized Calcium 4.6 mg/dL (4.6-5.3) 11/18/20 04:00 Urine Color Yellow (Yellow) 11/17/20 Unknown Urine Turbidity Slightly-cloudy (Clear) 11/17/20 Unknown Urine pH 6.0 (5.0-7.0) 11/17/20 Unknown Ur Specific [place] 1.012 (1.003-1.030) 11/17/20 Unknown Urine Protein 30 mg/dl mg/dL (Negative) 11/17/20 Unknown Urine Glucose (UA) 50 mg/dL (Negative) 11/17/20 Unknown Urine Ketones Neg mg/dL (Negative) 11/17/20 Unknown Urine Blood Sm (Negative) 11/17/20 Unknown Urine Nitrite Neg (Negative) 11/17/20 Unknown Urine Bilirubin Neg (Negative) 11/17/20 Unknown Urine Urobilinogen < 2.0 mg/dL (<2.0) 11/17/20 Unknown Ur Leukocyte Esterase Neg (Negative) 11/17/20 Unknown Urine WBC (Auto) 1.0 /HPF (0.0-6.0) 11/17/20 Unknown Urine RBC (Auto) 2.0 /HPF (0.0-6.0) 11/17/20 Unknown Hyaline Casts 8 /LPF 11/17/20 Unknown Urine Mucus Few /HPF 11/17/20 Unknown Urine Sperm 3+ /HPF (WINE BLENDER) 11/17/20 Unknown Salicylates < 0.3 mg/dL (2.8-20.0) L 11/17/20 10:32 Urine Opiates Screen Negative 11/17/20 Unknown Urine Methadone Screen Negative 11/17/20 Unknown Acetaminophen 5.0 ug/mL (10.0-30.0) L 11/17/20 10:32 Ur Barbiturates Screen Negative 11/17/20 Unknown Ur Phencyclidine Scrn Negative 11/17/20 Unknown Ur Amphetamines Screen Negative 11/17/20 Unknown U Benzodiazepines Scrn Negative 11/17/20 Unknown Urine Cocaine Screen Negative 11/17/20 Unknown U Marijuana (THC) Screen Negative 11/17/20 Unknown Drugs of Abuse Note Disclamer 11/17/20 Unknown Plasma/Serum Alcohol < 0.01 % (0-0.07) 11/17/20 10:32 Microbiology: Microbiology 11/19/20 07:45 Nares - Left MRSA Culture - Preliminary Oneil/IV: Voiding Method Incontinent Active Medications - Current Medications Current Medications: Generic Name Dose Route Start Last Admin Trade Name Freq PRN Reason Stop Dose Admin Acetaminophen 650 mg 11/17/20 18:38 Acetaminophen 325 Mg Tab PO Q4H PRN Pain MILD(1-3)/Fever >100.5/PALMA Amlodipine Besylate 10 mg 11/18/20 14:00 11/20/20 10:44 Amlodipine 10 Mg Tab PO 10 mg QDAY JOSE G Administration Lipase/Protease/Amylase 1 each 11/18/20 11:03 Lipase 10,500/Protease 25,000/Amylase 43,750 (Units) Dr Saunders FEEDTUBE PRN PRN For Clogged Feeding Tube Chlordiazepoxide HCl 50 mg 11/19/20 20:36 Chlordiazepoxide 25 Mg Cap PO Q1H PRN CIWA-Ar 8-15 Famotidine 20 mg 11/17/20 22:00 11/20/20 10:44 Famotidine 20 Mg/2 Ml Inj IV 20 mg BID JOSE G Administration Hydralazine HCl 20 mg 11/18/20 14:00 11/20/20 11:04 Hydralazine 20 Mg/1 Ml Inj IV 20 mg Q4HR JOSE G Administration Hydrophilic Ointment 1 applic 11/17/20 10:58 Lip Therapy Vaseline TP Q2HR PRN Dry Lips Levetiracetam 1,000 mg/ 110 mls @ 400 mls/hr 11/18/20 01:00 11/20/20 11:19 Dextrose IV 400 mls/hr Q12HR JOSE G Administration Sodium Chloride 1,000 mls @ 75 mls/hr 11/18/20 00:30 11/20/20 11:07 Nacl 0.9% 1000 Ml IV 75 mls/hr DIRECT JOSE G Administration Dextrose/Sodium Chloride 1,000 mls @ 100 mls/hr 11/18/20 12:00 11/19/20 23:24 D5/0.45ns IV 100 mls/hr DIRECT JOSE G Administration Labetalol HCl 20 mg 11/18/20 12:59 Labetalol 20 Mg/4 Ml Inj IV Q6HR PRN Tachyarrhythmias Lorazepam 2 mg 11/19/20 20:36 11/20/20 10:43 Lorazepam 2 Mg/Ml Vial IV 2 mg Q1H PRN Administration CIWA-Ar 8-15 Lorazepam 4 mg 11/19/20 20:36 Lorazepam 2 Mg/Ml Vial IV Q1H PRN CIWA-Ar 16-25 Metoclopramide HCl 10 mg 11/17/20 18:38 Metoclopramide 10 Mg/2 Ml Inj IV Q6H PRN Nausea And Vomiting Morphine Sulfate 2 mg 11/17/20 18:38 Morphine 2 Mg/1 Ml Inj IV Q4H PRN Pain, Moderate (4-6) Multi-Ingred Cream/Lotion/Oil/Oint 1 applic 11/17/20 10:58 Mineral Oil/Petrolatum, White Ophth Oint 3.5 Gm OU Q4HR PRN Dry Eye(s) Ondansetron HCl 4 mg 11/17/20 18:38 Ondansetron 4 Mg/2 Ml Inj IV Q8H PRN Nausea And Vomiting Simple Syrup 15 ml 11/18/20 11:03 Simple Syrup 15 Ml FEEDTUBE PRN PRN Hypoglycemia Simple Syrup 30 ml 11/18/20 11:03 Simple Syrup 15 Ml FEEDTUBE PRN PRN Hypoglycemia Sodium Bicarbonate 325 mg 11/18/20 11:03 Sodium Bicarbonate 325 Mg Tab FEEDTUBE PRN PRN For Clogged Feeding Tube Sodium Chloride 10 ml 11/17/20 22:00 11/20/20 10:45 Sodium Chloride 0.9% 10 Ml Flush Syringe IV 10 ml BID JOSE G Administration Sodium Chloride 10 ml 11/17/20 18:38 Sodium Chloride 0.9% 10 Ml Flush Syringe IV PRN PRN LINE FLUSH Nutrition/Malnutrition Assess - Dietary Evaluation Nutrition/Malnutrition Findings: Nutrition Notes Start: 11/18/20 10:53 Freq: Status: Active Protocol: Document 03/14/21 12:58 ARNOLDO (Rec: 11/19/20 13:01 [email or web address] [id number]) Nutrition Notes 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 He was extubated yesterday evening and transferred to medical floor. He has been very combative. Diet has not been advanced yet . BG labs have been <150 since last assessment. Nutrition Intervention Follow-Up By: 11/21/20 Additional Comments F/U: diet advancement, MST assessment
[2020-11-20] MEDS: POTASSIUM CHLORIDE 10 MEQ 10 MEQ/100 ML BAG IV SCH ×4 (15:39→18:41)
[2020-11-20] MEDS: hydrALAZINE 25 MG TAB PO SCH ×2 (15:47→22:53)
[2020-11-20] MEDS: VALSARTAN 40 MG TAB PO SCH ×2 (15:47→22:53)
--- NOTE | 2020-11-20 16:55 | Consultation ---
History of Present Illness Consult date: 11/20/20 Reason for Consult: Seizures History of present illness: 50-year-old male with a history of alcohol dependence who [facility]. Since a.m. patient has been having recurrent seizures with altered sensorium. In the ER patient was having seizures and altered sensorium. Was intubated because of protection of airway. No fever or chills. No exposure to coronavirus. No known exacerbating or relieving factors. The patient is currently extubated and on a telemetry floor . While in hospital no seizures reported . Medications and Allergies Allergies Allergy/AdvReac Type Severity Reaction Status Date / Time No Known Allergies Allergy Verified 11/17/20 10:54 Home Medications Medication Instructions Recorded Confirmed Last Taken Type No Known Home Medications [No 11/17/20 11/17/20 Unknown History Reported Home Medications] Active Meds: Active Medications Acetaminophen (Acetaminophen 325 Mg Tab) 650 mg PO Q4H PRN PRN Reason: Pain MILD(1-3)/Fever >100.5/PALMA Amlodipine Besylate (Amlodipine 10 Mg Tab) 10 mg PO QDAY [facility] Last Admin: 11/20/20 10:44 Dose: 10 mg Documented by: Lipase/Protease/Amylase (Lipase 10,500/Protease 25,000/Amylase 43,750 (Units) Dr Saunders) 1 each FEEDTUBE PRN PRN PRN Reason: For Clogged Feeding Tube Chlordiazepoxide HCl (Chlordiazepoxide 25 Mg Cap) 50 mg PO Q1H PRN PRN Reason: CIWA-Ar 8-15 Famotidine (Famotidine 20 Mg/2 Ml Inj) 20 mg IV BID [facility] Last Admin: 11/20/20 10:44 Dose: 20 mg Documented by: Hydralazine HCl (Hydralazine 25 Mg Tab) 50 mg PO Q8HR [facility] Last Admin: 11/20/20 15:47 Dose: 50 mg Documented by: Hydrophilic Ointment (Lip Therapy Vaseline) 1 applic TP Q2HR PRN PRN Reason: Dry Lips Levetiracetam 1,000 mg/ (Dextrose) 110 mls @ 400 mls/hr IV Q12HR JOSE G Last Admin: 11/20/20 11:19 Dose: 400 mls/hr Documented by: Sodium Chloride (Nacl 0.9% 1000 Ml) 1,000 mls @ 75 mls/hr IV DIRECT [facility] Last Admin: 11/20/20 11:07 Dose: 75 mls/hr Documented by: Dextrose/Sodium Chloride (D5/0.45ns) 1,000 mls @ 100 mls/hr IV DIRECT JOSE G Last Admin: 11/19/20 23:24 Dose: 100 mls/hr Documented by: Potassium Chloride (Kcl 10meq/100ml) 10 meq in 100 mls @ 100 mls/hr IV Q1H JOSE G Stop: 11/20/20 18:59 Last Admin: 11/20/20 15:39 Dose: 100 mls/hr Documented by: Labetalol HCl (Labetalol 20 Mg/4 Ml Inj) 20 mg IV Q6HR PRN PRN Reason: Tachyarrhythmias Lorazepam (Lorazepam 2 Mg/Ml Vial) 2 mg IV Q1H PRN PRN Reason: CIWA-Ar 8-15 Last Admin: 11/20/20 10:43 Dose: 2 mg Documented by: Lorazepam (Lorazepam 2 Mg/Ml Vial) 4 mg IV Q1H PRN PRN Reason: MIREILLEWA-Ru 16-25 Metoclopramide HCl (Metoclopramide 10 Mg/2 Ml Inj) 10 mg IV Q6H PRN PRN Reason: Nausea And Vomiting Morphine Sulfate (Morphine 2 Mg/1 Ml Inj) 2 mg IV Q4H PRN PRN Reason: Pain, Moderate (4-6) Multi-Ingred Cream/Lotion/Oil/Oint (Mineral Oil/Petrolatum, White Ophth Oint 3.5 Gm) 1 applic OU Q4HR PRN PRN Reason: Dry Eye(s) Ondansetron HCl (Ondansetron 4 Mg/2 Ml Inj) 4 mg IV Q8H PRN PRN Reason: Nausea And Vomiting Simple Syrup (Simple Syrup 15 Ml) 15 ml FEEDTUBE PRN PRN PRN Reason: Hypoglycemia Simple Syrup (Simple Syrup 15 Ml) 30 ml FEEDTUBE PRN PRN PRN Reason: Hypoglycemia Sodium Bicarbonate (Sodium Bicarbonate 325 Mg Tab) 325 mg FEEDTUBE PRN PRN PRN Reason: For Clogged Feeding Tube Sodium Chloride (Sodium Chloride 0.9% 10 Ml Flush Syringe) 10 ml IV BID [facility] Last Admin: 11/20/20 10:45 Dose: 10 ml Documented by: Sodium Chloride (Sodium Chloride 0.9% 10 Ml Flush Syringe) 10 ml IV PRN PRN PRN Reason: LINE FLUSH Valsartan (Valsartan 40 Mg Tab) 80 mg PO BID JOSE G Last Admin: 11/20/20 15:47 Dose: 80 mg Documented by: Review of Systems ROS unobtainable: due to mental status Physical Examination - Vital Signs Vital Signs: Vital Signs Pulse Ox 100 11/17/20 10:04 - Physical Exam Narrative exam: The patient is non verbal, moves extremities on stimulation, gait not tested . Per the examination via nurse no gaze preferance. Results - Laboratory Findings CBC and BMP: 11/20/20 04:36 11/20/20 04:36 Abnormal Lab Findings: Abnormal Labs 11/17/20 11/17/20 11/17/20 09:57 10:32 10:32 WBC MCV 97 H MCH 33 H RDW Plt Count Lymph % (Auto) [place] % (Auto) Lymph # (Auto) [place] # (Auto) Seg Neutrophils % Seg Neutrophils # Thrombin Time 20.3 H ABG pO2 ABG O2 Saturation ABG Hemoglobin ABG Chloride Potassium Chloride Carbon Dioxide BUN Creatinine Glucose POC Glucose 191 H Hemoglobin A1c Calcium Phosphorus Direct Bilirubin AST ALT Albumin Salicylates Acetaminophen 11/17/20 11/17/20 11/17/20 10:32 10:32 10:32 WBC MCV MCH RDW Plt Count Lymph % (Auto) [place] % (Auto) Lymph # (Auto) [place] # (Auto) Seg Neutrophils % Seg Neutrophils # Thrombin Time ABG pO2 ABG O2 Saturation ABG Hemoglobin ABG Chloride Potassium 3.3 L Chloride Carbon Dioxide 16 L BUN Creatinine 1.4 H Glucose 235 H POC Glucose Hemoglobin A1c Calcium Phosphorus Direct Bilirubin AST 125 H ALT 135 H Albumin Salicylates < 0.3 L Acetaminophen 5.0 L 11/17/20 11/18/20 11/18/20 13:15 04:00 04:27 WBC 12.3 H MCV 96 H MCH RDW Plt Count 129 L Lymph % (Auto) 8.5 L [place] % (Auto) 7.6 H Lymph # (Auto) 1.0 L [place] # (Auto) 0.9 H Seg Neutrophils % 83.3 H Seg Neutrophils # 10.3 H Thrombin Time ABG pO2 185.6 H ABG O2 Saturation 99.1 H ABG Hemoglobin 13.1 L ABG Chloride 110.0 H Potassium Chloride Carbon Dioxide BUN Creatinine Glucose POC Glucose Hemoglobin A1c Calcium Phosphorus Direct Bilirubin AST ALT Albumin Salicylates Acetaminophen 11/18/20 11/18/20 11/18/20 04:27 04:27 10:39 WBC MCV MCH RDW Plt Count Lymph % (Auto) [place] % (Auto) Lymph # (Auto) [place] # (Auto) Seg Neutrophils % Seg Neutrophils # Thrombin Time ABG pO2 ABG O2 Saturation ABG Hemoglobin ABG Chloride Potassium Chloride 108.3 H Carbon Dioxide 19 L BUN 8 L Creatinine Glucose POC Glucose 59 L Hemoglobin A1c 6.2 H Calcium Phosphorus Direct Bilirubin AST 84 H ALT 103 H Albumin 3.8 L Salicylates Acetaminophen 11/18/20 11/18/20 11/19/20 13:11 23:36 05:29 WBC MCV MCH RDW Plt Count Lymph % (Auto) [place] % (Auto) Lymph # (Auto) Johnson # (Auto) Seg Neutrophils % Seg Neutrophils # Thrombin Time ABG pO2 ABG O2 Saturation ABG Hemoglobin ABG Chloride Potassium Chloride Carbon Dioxide BUN Creatinine Glucose POC Glucose 128 H 106 H 108 H Hemoglobin A1c Calcium Phosphorus Direct Bilirubin AST ALT Albumin Salicylates Acetaminophen 11/19/20 11/19/20 11/19/20 16:00 16:00 20:57 WBC 11.4 H MCV 95 H MCH RDW 13.1 L Plt Count 121 L Lymph % (Auto) 12.6 L Johnson % (Auto) 11.8 H Lymph # (Auto) [place] # (Auto) 1.3 H Seg Neutrophils % 75.0 H Seg Neutrophils # 8.6 H Thrombin Time ABG pO2 ABG O2 Saturation ABG Hemoglobin ABG Chloride Potassium 3.4 L Chloride 108.8 H Carbon Dioxide BUN 5 L Creatinine Glucose 113 H POC Glucose Hemoglobin A1c Calcium Phosphorus 2.20 L Direct Bilirubin 0.4 H AST 88 H 96 H ALT 74 H 80 H Albumin 3.5 L 3.5 L Salicylates Acetaminophen 11/20/20 11/20/20 11/20/20 00:05 04:36 04:36 WBC MCV 96 H MCH RDW Plt Count 126 L Lymph % (Auto) [place] % (Auto) 11.4 H Lymph # (Auto) [place] # (Auto) 1.2 H Seg Neutrophils % 72.2 H Seg Neutrophils # Thrombin Time ABG pO2 ABG O2 Saturation ABG Hemoglobin ABG Chloride Potassium 3.2 L Chloride Carbon Dioxide BUN 5 L Creatinine Glucose 116 H POC Glucose 111 H Hemoglobin A1c Calcium 8.2 L Phosphorus Direct Bilirubin AST 109 H ALT 77 H Albumin 3.3 L Salicylates Acetaminophen 11/20/20 11/20/20 06:01 11:46 WBC MCV MCH RDW Plt Count Lymph % (Auto) [place] % (Auto) Lymph # (Auto) [place] # (Auto) Seg Neutrophils % Seg Neutrophils # Thrombin Time ABG pO2 ABG O2 Saturation ABG Hemoglobin ABG Chloride Potassium Chloride Carbon Dioxide BUN Creatinine Glucose POC Glucose 118 H 133 H Hemoglobin A1c Calcium Phosphorus Direct Bilirubin AST ALT Albumin Salicylates Acetaminophen Assessment and Plan Seizures / AMS - 1. Clinically Encephalopathy status post Seizures seems likely . 2. Head CT Brain abnormal raises the suspicion of Seizures more likely. 1. Recommend : 1. MRI Brain no contrast . 2. EEG 3. Continue Keppra but now at 750mg BID ( once switched to oral ). 4. Patient will need a out patient follow up for adjsutement of Seizure Medications . 5. No driving for 6 months . 6. Follow up in am Dr. Jacobs
[2020-11-20] MEDS: D5W/0.45% NACL 1,000 ML IV SCH (22:51)
[2020-11-21] MEDS: LORazepam 2 MG/ML VIAL IV PRN ×2 (04:46→14:35)
[2020-11-21] MEDS: hydrALAZINE 25 MG TAB PO SCH ×3 (06:12→22:01)
[2020-11-21 06:30] LABS: Basophils # (Auto) 0.1 K/mm3 (0.0-0.1); Basophils % (Auto) 0.6 % (0.0-1.8); Eosinophils # (Auto) 0.1 K/mm3 (0.0-0.4); Eosinophils % (Auto) 0.6 % (0.0-4.3); Hematocrit 38.7 % (35.5-45.6); Hemoglobin 13.3 gm/dl (11.8-15.2); Lymphocytes # (Auto) 1.7 K/mm3 (1.2-5.4); Lymphocytes % (Auto) 15.6 % (13.4-35.0); Mean Corpuscular HGB Conc 34 % (32-34); Mean Corpuscular Volume 95 fl (84-94); Monocytes # (Auto) 1.7 K/mm3 (0.0-0.8); Monocytes % (Auto) 15.6 % (0.0-7.3); Platelet Count 155 K/mm3 (140-440); Red Blood Count 4.08 M/mm3 (3.65-5.03)
[2020-11-21 06:51] LABS: Alanine Aminotransferase 70 units/L (7-56); Albumin 3.3 g/dL (3.9-5); Blood Urea Nitrogen 5 mg/dL (9-20); Calcium 8.3 mg/dL (8.4-10.2); Hemolysis Index 31
[2020-11-21 06:57] LABS: BUN/Creatinine Ratio 7
[2020-11-21] MEDS ORDERED: levETIRAcetam 500 MG/5 ML ORAL LIQD PO SCH (10:00)
--- NOTE | 2020-11-21 10:03 | Consultation ---
History of Present Illness - Reason for Consult Consult date: 11/21/20 Reason for consult: AMS - History of Present Psychiatric Illness Per nurse note: PATIENT RECEIVED AT 0730 ALERT X1 PERSON OPENS HIS EYES AT INTERVALS WHEN BEING CALLED , DISORIENTED TO PLACE DATE AND TIME . VERY CONFUSED PATIENT AND RESTLESS MET ON BILATERAL SOFT WRIST RESTRAINTS , ON FALL AND SAFETY PRECAUTIONS , YELLOW SOCKS AND FALL WRIST BAND APPLIED. BED ALARM ON , NPO IVF 5 % DEXTROSE IN 1/2 SALINE AT 75 MLS PER HOUR IN PROGRESS ON CIWA PROTOCOL WILL CONTINUE TO MONITOR PATIENT. The patient was seen today, he is lying in bed. He is confused and in restraints . He is unable to give any insight into his history or as to what is going on with him. The nurse caring for the patient today, states that he has been restless. PAST PSYCHIATRIC HISTORY Unable to assess PAST MEDICAL HISTORY: None reported Family Psychiatric History: None reported or documented SOCIAL HISTORY Unable to assess REVIEW OF SYSTEMS Unable to assess MENTAL STATUS EXAMINATION Unable to assess Assessment and Plan (1) Delirium Treatment Plan Start Mirtazepine 7.5mg po daily to decrease restlessness and improve sleep Risks, benefits and alternatives of medications discussed with the patient, questions answered and consent obtained from patient. PSYCHOTHERAPY: Supportive psychotherapy provided MEDICAL: Per primary team DELIRIUM PRECAUTIONS: Please re-orient patient frequently, keep lights on during the day, and minimize benzodiazepines and opiates as these medications could worsen patient's confusion. CANOE INSPECTOR: Defer to primary DISPOSITION: Do not recommend acute psychiatric inpatient treatment at this time. FOLLOW-UP: Will follow for psych progress and med management Thank you for the consult. Please contact with any questions and/or concerns. Case staffed with Dr. Ayala. Medications and Allergies Allergies Allergy/AdvReac Type Severity Reaction Status Date / Time No Known Allergies Allergy Verified 11/17/20 10:54 Home Medications Medication Instructions Recorded Confirmed Last Taken Type No Known Home Medications [No 11/17/20 11/17/20 Unknown History Reported Home Medications] Active Meds: Active Medications Acetaminophen (Acetaminophen 325 Mg Tab) 650 mg PO Q4H PRN PRN Reason: Pain MILD(1-3)/Fever >100.5/PALMA Amlodipine Besylate (Amlodipine 10 Mg Tab) 10 mg PO QDAY JOSE G Last Admin: 11/20/20 10:44 Dose: 10 mg Documented by: Lipase/Protease/Amylase (Lipase 10,500/Protease 25,000/Amylase 43,750 (Units) Dr Saunders) 1 each FEEDTUBE PRN PRN PRN Reason: For Clogged Feeding Tube Chlordiazepoxide HCl (Chlordiazepoxide 25 Mg Cap) 50 mg PO Q1H PRN PRN Reason: Edward 04-22 Famotidine (Famotidine 20 Mg/2 Ml Inj) 20 mg IV BID [facility] Last Admin: 11/20/20 22:52 Dose: 20 mg Documented by: Hydralazine HCl (Hydralazine 25 Mg Tab) 50 mg PO Q8HR [facility] Last Admin: 11/21/20 06:12 Dose: Not Given Documented by: Hydrophilic Ointment (Lip Therapy Vaseline) 1 applic TP Q2HR PRN PRN Reason: Dry Lips Dextrose/Sodium Chloride (D5/0.45ns) 1,000 mls @ 100 mls/hr IV DIRECT [facility] Last Admin: 11/20/20 22:51 Dose: 100 mls/hr Documented by: Labetalol HCl (Labetalol 20 Mg/4 Ml Inj) 20 mg IV Q6HR PRN PRN Reason: Tachyarrhythmias Levetiracetam (Levetiracetam 500 Mg/5 Ml Oral Liqd) 750 mg PO BID [facility] Lorazepam (Lorazepam 2 Mg/Ml Vial) 2 mg IV Q1H PRN PRN Reason: Edward 04-22 Last Admin: 11/21/20 04:46 Dose: 2 mg Documented by: Lorazepam (Lorazepam 2 Mg/Ml Vial) 4 mg IV Q1H PRN PRN Reason: Edward Metoclopramide HCl (Metoclopramide 10 Mg/2 Ml Inj) 10 mg IV Q6H PRN PRN Reason: Nausea And Vomiting Morphine Sulfate (Morphine 2 Mg/1 Ml Inj) 2 mg IV Q4H PRN PRN Reason: Pain, Moderate (4-6) Multi-Ingred Cream/Lotion/Oil/Oint (Mineral Oil/Petrolatum, White Ophth Oint 3.5 Gm) 1 applic OU Q4HR PRN PRN Reason: Dry Eye(s) Ondansetron HCl (Ondansetron 4 Mg/2 Ml Inj) 4 mg IV Q8H PRN PRN Reason: Nausea And Vomiting Simple Syrup (Simple Syrup 15 Ml) 15 ml FEEDTUBE PRN PRN PRN Reason: Hypoglycemia Simple Syrup (Simple Syrup 15 Ml) 30 ml FEEDTUBE PRN PRN PRN Reason: Hypoglycemia Sodium Bicarbonate (Sodium Bicarbonate 325 Mg Tab) 325 mg FEEDTUBE PRN PRN PRN Reason: For Clogged Feeding Tube Sodium Chloride (Sodium Chloride 0.9% 10 Ml Flush Syringe) 10 ml IV BID [facility] Last Admin: 11/20/20 22:53 Dose: 10 ml Documented by: Sodium Chloride (Sodium Chloride 0.9% 10 Ml Flush Syringe) 10 ml IV PRN PRN PRN Reason: LINE FLUSH Valsartan (Valsartan 40 Mg Tab) 80 mg PO BID [facility] Last Admin: 11/20/20 22:53 Dose: Not Given Documented by: Mental Status Exam - Vital signs Last Vital Signs Temp 98.3 F 11/21/20 08:14 Pulse 91 H 11/21/20 06:47 Resp 16 11/21/20 08:14 BP 143/80 11/21/20 08:14 Pulse Ox 97 11/21/20 08:48 Results Result Diagrams: 11/21/20 05:46 11/21/20 05:46 Abnormal lab results 11/20/20 11/21/20 11/21/20 Range/Units 11:46 05:46 05:46 MCV 95 H (84-94) fl MCH 33 H (28-32) pg RDW 13.0 L (13.2-15.2) % [place] % (Auto) 15.6 H (0.0-7.3) % [place] # (Auto) 1.7 H (0.0-0.8) K/mm3 Potassium 3.5 L (3.6-5.0) mmol/L Carbon Dioxide 20 L (22-30) mmol/L BUN 5 L (9-20) mg/dL Creatinine 0.7 L (0.8-1.3) mg/dL Glucose 127 H (75-100) mg/dL POC Glucose 133 H (70-105) mg/dL Calcium 8.3 L (8.4-10.2) mg/dL AST 95 H (5-40) units/L ALT 70 H (7-56) units/L Albumin 3.3 L (3.9-5) g/dL All other labs normal.
[2020-11-21] MEDS: FAMOTIDINE 20 MG/2 ML INJ IV SCH ×2 (10:09→22:18)
[2020-11-21] MEDS: VALSARTAN 40 MG TAB PO SCH ×2 (10:12→22:01)
[2020-11-21] MEDS: amLODIPine 10 MG TAB PO SCH (10:12)
[2020-11-21] MEDS: D5W/0.45% NACL 1,000 ML IV SCH ×2 (10:16→22:19)
[2020-11-21] MEDS ORDERED: D5W/0.45% NACL 1,000 ML with POTASSIUM CHLORIDE 20 MEQ IV SCH (10:50)
[2020-11-21] MEDS ORDERED: D5W/0.45% NACL/KCL 20 MEQ 20 MEQ/1,000 ML BAG IV SCH (11:00)
[2020-11-21] MEDS: levETIRAcetam 750 MG in DEXTROSE 5% IN WATER 100 ML IV SCH ×2 (12:45→22:19)
--- NOTE | 2020-11-21 16:51 | Progress Note ---
Assessment and Plan (1) Acute encephalopathy Current Visit: Yes Status: Acute Plan to address problem: Resolved Secondary to recurrent seizures UDS negative (2) Status epilepticus Current Visit: Yes Status: Acute Plan to address problem: Continue antiseizure medications CT head negative for any acute stroke-infarcts or hemorrhage EEG. Patient may need continuous EEG monitoring if EEG shows seizures. MRI brain with and without contrast pending Neurology evaluation pending (3) Respiratory failure with hypoxia Resolved (4) STEPHANY Current Visit: Yes Status: Chronic Plan to address problem: Resolved Secondary to vasomotor nephropathy Continue to monitor renal function (4) Hypertension Current Visit: Yes Status: Chronic Plan to address problem: Continue hydralazine Continue valsartan and amlodipine (5) Cocaine and alcohol dependence Current Visit: Yes Status: Chronic Plan to address problem: Patient to be counseled about cocaine dependence On CIWA protocol for alcohol dependence (6) DVT prophylaxis Current Visit: Yes Status: Acute Plan to address problem: On heparin and GI prophylaxis Brief history: 50-year-old male with a history of alcohol dependence who lives at a care home. Since a.m. patient has been having recurrent seizures with altered sensorium. In the ER patient was having seizures and altered sensorium. Was intubated because of protection of airway. No fever or chills. No exposure to coron avirus. No known exacerbating or relieving factors. Patient was started on antiseizure medications and transferred to the ICU. Hospital course 11/18. Patient remains intubated and is on sedatives. Critical care on board. Remains on Keppra. Neurology consultation placed 11/19. Patient extubated and transferred to the floors today. Remains on Keppra. He denies any history of seizures in the past awaiting EEG and MRI brain. Neurology evaluation 11/20. Patient refused MRI yesterday. MRI still to be performed today. Awaiting EEG. Neurology has been consulted. Continue Keppra for now. PT/OT pending. 11/21: Cannot obtain MRI as medical history could not be completed. Repeat CT head showed no acute changes. EEG pending. Noted neurology and psychiatry recommendation. Disposition plan most likely back to care home when mental status stabilizes. Subjective Date of service: 11/21/20 Interval history: Patient seen and examined. Medical records and medication list reviewed. No acute event overnight noted by the RN. Patient remains confused and trying to get out from the bed Restraint placed Discussed plan of care at bedside with patient's RN. Objective - Exam Narrative Exam: GENERAL: Elderly -Russian male lying on bed appeared to be in no discomfort. HEENT: Normocephalic. Atraumatic. No conjunctival congestion or icterus. Patient has very dry mucous membranes. NECK: Supple. Trachea midline. CHEST/LUNGS: Clear to auscultated bilaterally, breathing nonlabored. No wheezes crackles or rhonchi. HEART/CARDIOVASCULAR: Regular in rate and rhythm. S1 and S2 positive. ABDOMEN: Abdomen is soft, nontender. Patient has normal bowel sounds. SKIN: There is no rash. Warm and dry. NEURO: No focal motor deficit. Does not follow command, lethargic MUSCULOSKELETAL: No joint effusion or tenderness. EXTRIMITY: No edema, no cyanosis or clubbing. PSYCH: Very confused. - Constitutional Vitals: Vital Signs - 12hr 11/21/20 11/21/20 11/21/20 06:47 08:14 08:48 Temperature 98.3 F Pulse Rate 91 H Respiratory 16 Rate Blood Pressure 143/80 Blood Pressure 152/87 [Left] O2 Sat by Pulse 97 Oximetry - Labs CBC & Chem 7: 11/22/20 05:38 11/22/20 05:38 Labs: Abnormal lab results 11/21/20 11/21/20 11/21/20 Range/Units 05:46 05:46 06:30 MCV 95 H (84-94) fl MCH 33 H (28-32) pg RDW 13.0 L (13.2-15.2) % [place] % (Auto) 15.6 H (0.0-7.3) % [place] # (Auto) 1.7 H (0.0-0.8) K/mm3 Potassium 3.5 L (3.6-5.0) mmol/L Carbon Dioxide 20 L (22-30) mmol/L BUN 5 L (9-20) mg/dL Creatinine 0.7 L (0.8-1.3) mg/dL Glucose 127 H (75-100) mg/dL POC Glucose 122 H (70-105) mg/dL Calcium 8.3 L (8.4-10.2) mg/dL AST 95 H (5-40) units/L ALT 70 H (7-56) units/L Albumin 3.3 L (3.9-5) g/dL HEART Score - HEART Score Troponin: Troponin T < 0.010 ng/mL (0.00-0.029) 11/17/20 10:32
[2020-11-21] MEDS: MIRTAZAPINE 15 MG TAB PO SCH (22:02)
[2020-11-22] MEDS: hydrALAZINE 25 MG TAB PO SCH ×3 (05:48→22:44)
[2020-11-22 06:16] LABS: Hematocrit 39.1 % (35.5-45.6); Hemoglobin 13.3 gm/dl (11.8-15.2); Mean Corpuscular HGB Conc 34 % (32-34); Mean Corpuscular Volume 95 fl (84-94); Platelet Count 179 K/mm3 (140-440); Red Blood Count 4.12 M/mm3 (3.65-5.03); Red Cell Distribution Width 12.9 % (13.2-15.2)
[2020-11-22 06:23] LABS: Basophils % (Auto) 0.4 % (0.0-1.8); Eosinophils # (Auto) 0.1 K/mm3 (0.0-0.4); Eosinophils % (Auto) 1.2 % (0.0-4.3); Lymphocytes # (Auto) 1.4 K/mm3 (1.2-5.4); Lymphocytes % (Auto) 18.9 % (13.4-35.0); Monocytes # (Auto) 1.6 K/mm3 (0.0-0.8)
[2020-11-22 06:40] LABS: Alanine Aminotransferase 65 units/L (7-56); Albumin 3.3 g/dL (3.9-5); Blood Urea Nitrogen 4 mg/dL (9-20); Calcium 8.3 mg/dL (8.4-10.2); Hemolysis Index 8
[2020-11-22 06:52] LABS: BUN/Creatinine Ratio 6
--- NOTE | 2020-11-22 08:49 | Progress Note ---
Subjective - Reason for Consult Consult date: 11/22/20 Reason for consult: AMS - Chief Complaint Chief complaint: Per Nurse Note: Received care of pt with report from Mathieu DELEON. Pt lying in bed with eyes closed aroused to physical touch, oriented x1 with confusion. Tele monitor to chest wall. no s/s of distress noted. Breathing non labored on RA. IVF infusing 0.9ns @75ml/hr. left hand #22g site intact and patent. CIWA protocol maintained. condom cath in place for incontinent care. fall/seizure precaution maintained. bed in lowest position alarm on. will continue to monitor pt. I attempted to interview the patient this morning, he is lying in bed asleep. I was unable to keep him awake to engage him. He is in restraints. He arouses with tactile stimuli only but drifts back to sleep. REVIEW OF SYSTEMS Unable to assess MENTAL STATUS EXAMINATION Unable to assess Assessment and Plan (1) Delirium Treatment Plan Continue Mirtazepine 7.5mg po daily to decrease restlessness and improve sleep Agree with CIWA Risks, benefits and alternatives of medications discussed with the patient, questions answered and consent obtained from patient. PSYCHOTHERAPY: Supportive psychotherapy provided MEDICAL: Per primary team DELIRIUM PRECAUTIONS: Please re-orient patient frequently, keep lights on during the day, and minimize benzodiazepines and opiates as these medications could worsen patient's confusion. WEIGHER AND CRUSHER: Defer to primary DISPOSITION: Do not recommend acute psychiatric inpatient treatment at this time. FOLLOW-UP: Will follow for psych progress and med management Thank you for the consult. Please contact with any questions and/or concerns. Case staffed with Dr. Ayala. Mental Status Exam - Vital signs Last Vital Signs Temp 98.5 F 11/22/20 03:29 Pulse 92 H 11/22/20 03:29 Resp 18 11/22/20 03:29 BP 148/84 11/22/20 03:29 Pulse Ox 92 11/22/20 03:29
[2020-11-22] MEDS: VALSARTAN 40 MG TAB PO SCH ×2 (10:07→22:43)
[2020-11-22] MEDS: amLODIPine 10 MG TAB PO SCH (10:07)
[2020-11-22] MEDS: FAMOTIDINE 20 MG/2 ML INJ IV SCH ×2 (10:28→22:44)
[2020-11-22] MEDS: D5W/0.45% NACL 1,000 ML IV SCH (10:28)
[2020-11-22] MEDS: levETIRAcetam 750 MG in DEXTROSE 5% IN WATER 100 ML IV SCH ×2 (10:28→22:45)
[2020-11-22] MEDS ORDERED: POTASSIUM CHLORIDE ER 20 MEQ TAB PO NR (10:42)
[2020-11-22] MEDS ORDERED: D5W/0.45% NACL 1,000 ML with POTASSIUM CHLORIDE 20 MEQ IV SCH (12:08)
--- NOTE | 2020-11-22 17:19 | Progress Note ---
Assessment and Plan (1) Acute encephalopathy Current Visit: Yes Status: Acute Plan to address problem: Resolved Secondary to recurrent seizures UDS negative (2) Status epilepticus Current Visit: Yes Status: Acute Plan to address problem: Continue antiseizure medications CT head negative for any acute stroke-infarcts or hemorrhage EEG. Patient may need continuous EEG monitoring if EEG shows seizures. MRI brain with and without contrast pending Neurology evaluation pending (3) Respiratory failure with hypoxia Resolved (4) STEPHANY Current Visit: Yes Status: Chronic Plan to address problem: Resolved Secondary to vasomotor nephropathy Continue to monitor renal function (4) Hypertension Current Visit: Yes Status: Chronic Plan to address problem: Continue hydralazine Continue valsartan and amlodipine (5) Cocaine and alcohol dependence Current Visit: Yes Status: Chronic Plan to address problem: Patient to be counseled about cocaine dependence On CIWA protocol for alcohol dependence (6) DVT prophylaxis Current Visit: Yes Status: Acute Plan to address problem: On heparin and GI prophylaxis Brief history: 50-year-old male with a history of alcohol dependence who lives at a senior living. Since a.m. patient has been having recurrent seizures with altered sensorium. In the ER patient was having seizures and altered sensorium. Was intubated because of protection of airway. No fever or chills. No exposure to coron avirus. No known exacerbating or relieving factors. Patient was started on antiseizure medications and transferred to the ICU. Hospital course 11/18. Patient remains intubated and is on sedatives. Critical care on board. Remains on Keppra. Neurology consultation placed 11/19. Patient extubated and transferred to the floors today. Remains on Keppra. He denies any history of seizures in the past awaiting EEG and MRI brain. Neurology evaluation 11/20. Patient refused MRI yesterday. MRI still to be performed today. Awaiting EEG. Neurology has been consulted. Continue Keppra for now. PT/OT pending. 11/21: Cannot obtain MRI as medical history could not be completed. Repeat CT head showed no acute changes. EEG pending. Noted neurology and psychiatry recommendation. Disposition plan most likely back to senior living when mental status stabilizes. 11/22: Remains lethargic and confused. Restraint in place. Continue supportive care. Started on diet, follow BMP, replete potassium. Wants to eat, will start on mechanical soft diet if clears by speech. Subjective Date of service: 11/22/20 Interval history: Patient seen and examined. Medical records and medication list reviewed. No acute event overnight noted by the RN. Patient remains confused and but appears more cooperative today and wants to eat Restraint placed Discussed plan of care at bedside with patient's RN. Objective - Exam Narrative Exam: GENERAL: Elderly -Kyrgy[place] male lying on bed appeared to be in no discomfort. HEENT: Normocephalic. Atraumatic. No conjunctival congestion or icterus. Patient has very dry mucous membranes. NECK: Supple. Trachea midline. CHEST/LUNGS: Clear to auscultated bilaterally, breathing nonlabored. No wheezes crackles or rhonchi. HEART/CARDIOVASCULAR: Regular in rate and rhythm. S1 and S2 positive. ABDOMEN: Abdomen is soft, nontender. Patient has normal bowel sounds. SKIN: There is no rash. Warm and dry. NEURO: No focal motor deficit. Does not follow command, lethargic MUSCULOSKELETAL: No joint effusion or tenderness. EXTRIMITY: No edema, no cyanosis or clubbing. PSYCH: Cooperative but confused. - Constitutional Vitals: Vital Signs - 12hr 11/22/20 10:00 Pulse Rate 94 H - Labs CBC & Chem 7: 11/22/20 05:38 11/23/20 05:23 Labs: Abnormal lab results 11/21/20 11/22/20 11/22/20 Range/Units 23:46 05:38 05:38 MCV 95 H (84-94) fl RDW 12.9 L (13.2-15.2) % Burnett # (Auto) 1.6 H (0.0-0.8) K/mm3 Potassium 3.2 L (3.6-5.0) mmol/L BUN 4 L (9-20) mg/dL Creatinine 0.7 L (0.8-1.3) mg/dL Glucose 129 H (75-100) mg/dL POC Glucose 128 H (70-105) mg/dL Calcium 8.3 L (8.4-10.2) mg/dL AST 83 H (5-40) units/L ALT 65 H (7-56) units/L Albumin 3.3 L (3.9-5) g/dL 11/22/20 11/22/20 Range/Units 05:59 11:11 MCV (84-94) fl RDW (13.2-15.2) % Burnett # (Auto) (0.0-0.8) K/mm3 Potassium (3.6-5.0) mmol/L BUN (9-20) mg/dL Creatinine (0.8-1.3) mg/dL Glucose (75-100) mg/dL POC Glucose 129 H 123 H (70-105) mg/dL Calcium (8.4-10.2) mg/dL AST (5-40) units/L ALT (7-56) units/L Albumin (3.9-5) g/dL HEART Score - HEART Score Troponin: Troponin T < 0.010 ng/mL (0.00-0.029) 11/17/20 10:32
[2020-11-22] MEDS: D5W/0.45% NACL/KCL 20 MEQ 20 MEQ/1,000 ML BAG IV SCH (17:21)
[2020-11-22] MEDS: POTASSIUM CHLORIDE 10 MEQ 10 MEQ/100 ML BAG IV SCH ×3 (20:16→22:15)
[2020-11-22] MEDS: MIRTAZAPINE 15 MG TAB PO SCH (22:44)
[2020-11-23] MEDS: D5W/0.45% NACL/KCL 20 MEQ 20 MEQ/1,000 ML BAG IV SCH ×2 (05:09→17:24)
[2020-11-23 06:13] LABS: Blood Urea Nitrogen 7 mg/dL (9-20); Calcium 8.5 mg/dL (8.4-10.2); Hemolysis Index 8
[2020-11-23 06:18] LABS: BUN/Creatinine Ratio 10
[2020-11-23] MEDS: hydrALAZINE 25 MG TAB PO SCH ×3 (06:30→22:36)
--- NOTE | 2020-11-23 08:46 | Progress Note ---
Subjective - Reason for Consult Consult date: 11/23/20 Reason for consult: AMS - Chief Complaint Chief complaint: The patient was seen today, he is awake, and more alert than previous days. He is a/o x 2. He knew he was in the hospital but didn't know where. He is out of restraints and sitting up eating. He was having a hard time, I moved his tray closer. The patient says "I'm not doing too good." When asked him what was wrong, he replies "I don't know, just uncomfortable. Hurting a little." He denies SI/HI. He says "naw, I don't want to do none of that." He denies hallucinations at present, but says "sometimes, I do. Every now and them but not now. The patient says he slept "decent." REVIEW OF SYSTEMS Constitutional: Negative for weight loss ENT: Negative for stridor Respiratory: Negative for cough or hemoptysis All other systems reviewed and are negative MENTAL STATUS EXAMINATION General Appearance and Behavior: Age appropriate, good hygiene, not wearing appropriate clothes, fair eye contact, cooperative with questioning, calm. Cooperation: cooperative Psychomotor Behavior: Psychomotor normal Mood: not too ogood Affect and affective range: Restricted Thought Process: Goal directed Thought Content: hallucinations sometimes Speech: normal rate and volume Suicidal Ideation: Denies Homicidal Ideation: Denies Hallucinations: Denies Delusions: None elicited Impulse Control: Limited Insight and Judgment: Limited Memory: impaired Attention: Divided attention impaired Orientation: Alert Assessment and Plan (1) Delirium Treatment Plan Continue Mirtazepine 7.5mg po daily to decrease restlessness and improve sleep Agree with [facility] Risks, benefits and alternatives of medications discussed with the patient, questions answered and consent obtained from patient. PSYCHOTHERAPY: Supportive psychotherapy provided MEDICAL: Per primary team DELIRIUM PRECAUTIONS: Please re-orient patient frequently, keep lights on during the day, and minimize benzodiazepines and opiates as these medications could worsen patient's confusion. [employer]: Defer to primary DISPOSITION: Do not recommend acute psychiatric inpatient treatment at this time. FOLLOW-UP: will sign off. Thank you for the consult. Please contact with any questions and/or concerns. Case staffed with Dr. Ayala. Mental Status Exam - Vital signs Last Vital Signs Temp 98.3 F 11/23/20 03:52 Pulse 84 11/23/20 06:30 Resp 18 11/23/20 03:52 BP 133/76 11/23/20 06:30 Pulse Ox 97 11/23/20 03:52
[2020-11-23] MEDS ORDERED: cloNIDine TTS 0.2 MG/24 HR PATCH TD SCH (10:00)
[2020-11-23] MEDS: amLODIPine 10 MG TAB PO SCH (10:39)
[2020-11-23] MEDS: VALSARTAN 40 MG TAB PO SCH ×2 (10:39→22:33)
[2020-11-23] MEDS: FAMOTIDINE 20 MG/2 ML INJ IV SCH ×2 (10:40→22:37)
[2020-11-23] MEDS: levETIRAcetam 750 MG in DEXTROSE 5% IN WATER 100 ML IV SCH ×2 (10:40→22:37)
[2020-11-23] MEDS ORDERED: POTASSIUM CHLORIDE ER 20 MEQ TAB PO ONE (17:00)
--- NOTE | 2020-11-23 17:01 | Progress Note ---
Assessment and Plan -- Acute encephalopathy Slowly improving Likely secondary to recurrent seizures UDS negative -- Status epilepticus Continue antiseizure medications CT head negative for any acute stroke-infarcts or hemorrhage EEG. Patient may need continuous EEG monitoring if EEG shows seizures. MRI brain with and without contrast cannot be obtained as patient's history could not be completed Follow neurology recommendation -- Respiratory failure with hypoxia Resolved -- STEPHANY Secondary to vasomotor nephropathy Continue to monitor renal function -- Hypertension Continue hydralazine Continue valsartan and amlodipine --Cocaine and alcohol dependence Patient to be counseled about cocaine dependence On CIPA protocol for alcohol dependence -- DVT prophylaxis On heparin and GI prophylaxis Brief history: 50-year-old male with a history of alcohol dependence who lives at a [facility]. Since a.m. patient has been having recurrent seizures with altered sensorium. In the ER patient was having seizures and altered sensorium. Was intubated because of protection of airway. No fever or chills. No exposure to gurpreet navirus. No known exacerbating or relieving factors. Patient was started on antiseizure medications and transferred to the ICU. Hospital course 11/18. Patient remains intubated and is on sedatives. Critical care on board. Remains on Keppra. Neurology consultation placed 11/19. Patient extubated and transferred to the floors today. Remains on Keppra. He denies any history of seizures in the past awaiting EEG and MRI brain. Neurology evaluation 11/20. Patient refused MRI yesterday. MRI still to be performed today. Awaiting EEG. Neurology has been consulted. Continue Keppra for now. PT/OT pending. 11/21: Cannot obtain MRI as medical history could not be completed. Repeat CT head showed no acute changes. EEG pending. Noted neurology and psychiatry recommendation. Disposition plan most likely back to [facility] when mental status stabilizes. 11/22: Remains lethargic and confused. Restraint in place. Continue supportive care. Started on diet, follow BMP, replete potassium. Wants to eat, will start on mechanical soft diet if clears by speech. 11/23: Patient remains stable but sleepy today. Continue supportive care, started on mechanical soft diet -poor oral intake. Continue to follow. When mental status improves DC to [facility] Subjective Date of service: 11/23/20 Interval history: Patient seen and examined. Medical records and medication list reviewed. No acute event overnight noted by the RN. Patient appears very sleepy Discussed plan of care at bedside with patient's RN. Objective - Exam Narrative Exam: GENERAL: Elderly -Australian male lying on bed appeared to be in no discomfort. HEENT: Normocephalic. Atraumatic. No conjunctival congestion or icterus. Patient has very dry mucous membranes. NECK: Supple. Trachea midline. CHEST/LUNGS: Clear to auscultated bilaterally, breathing nonlabored. No wheezes crackles or rhonchi. HEART/CARDIOVASCULAR: Regular in rate and rhythm. S1 and S2 positive. ABDOMEN: Abdomen is soft, nontender. Patient has normal bowel sounds. SKIN: There is no rash. Warm and dry. NEURO: No focal motor deficit. Does not follow command, lethargic MUSCULOSKELETAL: No joint effusion or tenderness. EXTRIMITY: No edema, no cyanosis or clubbing. PSYCH: Drowsy and lethargic. - Constitutional Vitals: Vital Signs - 12hr 11/23/20 11/23/20 11/23/20 06:27 06:30 07:11 Temperature 98.6 F Pulse Rate 84 97 H Blood Pressure 133/76 133/76 161/103 O2 Sat by Pulse 98 Oximetry 11/23/20 12:00 Temperature Pulse Rate 73 Blood Pressure O2 Sat by Pulse Oximetry - Labs CBC & Chem 7: 11/22/20 05:38 11/23/20 05:23 Labs: Abnormal lab results 11/22/20 11/23/20 11/23/20 Range/Units 17:04 00:14 05:23 Potassium 3.5 L (3.6-5.0) mmol/L BUN 7 L (9-20) mg/dL Creatinine 0.7 L (0.8-1.3) mg/dL Glucose 106 H (75-100) mg/dL POC Glucose 125 H 126 H (70-105) mg/dL HEART Score - HEART Score Troponin: Troponin T < 0.010 ng/mL (0.00-0.029) 11/17/20 10:32
[2020-11-23] MEDS: MIRTAZAPINE 15 MG TAB PO SCH (22:37)
[2020-11-24] MEDS: hydrALAZINE 25 MG TAB PO SCH ×3 (06:16→21:48)
[2020-11-24] MEDS: VALSARTAN 40 MG TAB PO SCH ×2 (09:19→21:48)
[2020-11-24] MEDS: amLODIPine 10 MG TAB PO SCH (09:20)
[2020-11-24] MEDS: FAMOTIDINE 20 MG/2 ML INJ IV SCH (09:20)
[2020-11-24] MEDS: POTASSIUM CHLORIDE ER 20 MEQ TAB PO SCH (09:20)
[2020-11-24] MEDS: levETIRAcetam 750 MG in DEXTROSE 5% IN WATER 100 ML IV SCH (12:24)
--- NOTE | 2020-11-24 13:52 | Progress Note ---
Assessment and Plan -- Acute encephalopathy Slowly improving Likely secondary to recurrent seizures UDS negative -- Status epilepticus Continue antiseizure medications CT head negative for any acute stroke-infarcts or hemorrhage EEG. Patient may need continuous EEG monitoring if EEG shows seizures. MRI brain with and without contrast cannot be obtained as patient's history could not be completed Follow neurology recommendation -- Respiratory failure with hypoxia Resolved -- STEPHANY Secondary to vasomotor nephropathy Continue to monitor renal function -- Hypertension Continue hydralazine Continue valsartan and amlodipine --Cocaine and alcohol dependence Patient to be counseled about cocaine dependence On CIWA protocol for alcohol dependence -- DVT prophylaxis On heparin and GI prophylaxis Brief history: 50-year-old male with a history of alcohol dependence who lives at a [facility]. Since a.m. patient has been having recurrent seizures with altered sensorium. In the ER patient was having seizures and altered sensorium. Was intubated because of protection of airway. No fever or chills. No exposure to brand virus. No known exacerbating or relieving factors. Patient was started on antiseizure medications and transferred to the ICU. Hospital course 11/18. Patient remains intubated and is on sedatives. Critical care on board. Remains on Keppra. Neurology consultation placed 11/19. Patient extubated and transferred to the floors today. Remains on Keppra. He denies any history of seizures in the past awaiting EEG and MRI brain. Neurology evaluation 11/20. Patient refused MRI yesterday. MRI still to be performed today. Awaiting EEG. Neurology has been consulted. Continue Keppra for now. PT/OT pending. 11/21: Cannot obtain MRI as medical history could not be completed. Repeat CT head showed no acute changes. EEG pending. Noted neurology and psychiatry recommendation. Disposition plan most likely back to [facility] when mental status stabilizes. 11/22: Remains lethargic and confused. Restraint in place. Continue supportive care. Started on diet, follow BMP, replete potassium. Wants to eat, will start on mechanical soft diet if clears by speech. 11/23: Patient remains stable but sleepy today. Continue supportive care, started on mechanical soft diet -poor oral intake. Continue to follow. When mental status improves DC to [facility] 11/24: Patient is off restrain, appears to be withdrawn but answers question, does not make any eye contact. Patient with very poor oral intake. Continue on D5 normal saline for now. BMP in the morning. Clinically stable for discharge in a day or 2 Subjective Date of service: 11/24/20 Interval history: Patient seen and examined. Medical records and medication list reviewed. No acute event overnight noted by the RN. Patient appears awake and alert but does not make any eye contact Discussed plan of care at bedside with patient's RN. Objective - Exam Narrative Exam: GENERAL: Elderly -German male lying on bed appeared to be in no discomfort. HEENT: Normocephalic. Atraumatic. No conjunctival congestion or icterus. Patient has very dry mucous membranes. NECK: Supple. Trachea midline. CHEST/LUNGS: Clear to auscultated bilaterally, breathing nonlabored. No wheezes crackles or rhonchi. HEART/CARDIOVASCULAR: Regular in rate and rhythm. S1 and S2 positive. ABDOMEN: Abdomen is soft, nontender. Patient has normal bowel sounds. SKIN: There is no rash. Warm and dry. NEURO: No focal motor deficit. Does not follow command, lethargic MUSCULOSKELETAL: No joint effusion or tenderness. EXTRIMITY: No edema, no cyanosis or clubbing. PSYCH: alert - Constitutional Vitals: Vital Signs - 12hr 11/24/20 11/24/20 11/24/20 03:51 06:16 08:51 Temperature 98.2 F 99.1 F Pulse Rate 91 H 98 H Respiratory 18 Rate Blood Pressure 158/100 158/100 121/82 O2 Sat by Pulse 95 93 Oximetry 11/24/20 11/24/20 10:00 12:27 Temperature 97.3 F L Pulse Rate 79 84 Respiratory Rate Blood Pressure 109/63 O2 Sat by Pulse 91 Oximetry - Labs CBC & Chem 7: 11/22/20 05:38 11/23/20 05:23 Labs: Abnormal lab results 11/23/20 11/23/20 11/23/20 Range/Units 12:02 17:00 23:42 POC Glucose 124 H 127 H 115 H (70-105) mg/dL HEART Score - HEART Score Troponin: Troponin T < 0.010 ng/mL (0.00-0.029) 11/17/20 10:32
[2020-11-24] MEDS: MIRTAZAPINE 15 MG TAB PO SCH (21:49)
[2020-11-24] MEDS: FAMOTIDINE 20 MG TAB PO SCH (21:50)
[2020-11-25] MEDS: levETIRAcetam 750 MG in DEXTROSE 5% IN WATER 100 ML IV SCH (02:39)
[2020-11-25] MEDS: hydrALAZINE 25 MG TAB PO SCH ×3 (05:39→23:05)
[2020-11-25 06:41] LABS: BUN/Creatinine Ratio 15; Blood Urea Nitrogen 16 mg/dL (9-20); Calcium 9.1 mg/dL (8.4-10.2); Hemolysis Index 7
[2020-11-25] MEDS: POTASSIUM CHLORIDE ER 20 MEQ TAB PO SCH (09:32)
[2020-11-25] MEDS: VALSARTAN 40 MG TAB PO SCH ×2 (09:32→21:22)
[2020-11-25] MEDS: levETIRAcetam 500 MG/5 ML ORAL LIQD PO SCH ×2 (09:32→21:23)
[2020-11-25] MEDS: FAMOTIDINE 20 MG TAB PO SCH ×2 (09:32→21:22)
[2020-11-25] MEDS: amLODIPine 10 MG TAB PO SCH (09:33)
--- NOTE | 2020-11-25 11:26 | Progress Note ---
Assessment and Plan -- Acute encephalopathy Slowly improving Likely secondary to recurrent seizures UDS negative -- Status epilepticus Continue antiseizure medications CT head negative for any acute stroke-infarcts or hemorrhage EEG. Patient may need continuous EEG monitoring if EEG shows seizures. MRI brain with and without contrast cannot be obtained as patient's history could not be completed Follow neurology recommendation -- Respiratory failure with hypoxia Resolved -- STEPHANY Secondary to vasomotor nephropathy Continue to monitor renal function -- Hypertension Continue hydralazine Continue valsartan and amlodipine --Cocaine and alcohol dependence Patient to be counseled about cocaine dependence On CIWA protocol for alcohol dependence -- DVT prophylaxis On heparin and GI prophylaxis Brief history: 50-year-old male with a history of alcohol dependence who lives at a [facility]. Since a.m. patient has been having recurrent seizures with altered sensorium. In the ER patient was having seizures and altered sensorium. Was intubated because of protection of airway. No fever or chills. No exposure to brand virus. No known exacerbating or relieving factors. Patient was started on antiseizure medications and transferred to the ICU. Hospital course 11/18. Patient remains intubated and is on sedatives. Critical care on board. Remains on Keppra. Neurology consultation placed 11/19. Patient extubated and transferred to the floors today. Remains on Keppra. He denies any history of seizures in the past awaiting EEG and MRI brain. Neurology evaluation 11/20. Patient refused MRI yesterday. MRI still to be performed today. Awaiting EEG. Neurology has been consulted. Continue Keppra for now. PT/OT pending. 11/21: Cannot obtain MRI as medical history could not be completed. Repeat CT head showed no acute changes. EEG pending. Noted neurology and psychiatry recommendation. Disposition plan most likely back to [facility] when mental status stabilizes. 11/22: Remains lethargic and confused. Restraint in place. Continue supportive care. Started on diet, follow BMP, replete potassium. Wants to eat, will start on mechanical soft diet if clears by speech. 11/23: Patient remains stable but sleepy today. Continue supportive care, started on mechanical soft diet -poor oral intake. Continue to follow. When mental status improves DC to [facility] 11/24: Patient is off restrain, appears to be withdrawn but answers question, does not make any eye contact. Patient with very poor oral intake. Continue on D5 normal saline for now. BMP in the morning. Clinically stable for discharge in a day or 2 11/25: Clinically improving, tolerating diet. Wait for final PT recommendation f or discharge planning Subjective Date of service: 11/25/20 Interval history: Patient seen and examined. Medical records and medication list reviewed. No acute event overnight noted by the RN. Patient appears awake and alert but does not make any eye contact Discussed plan of care at bedside with patient's RN. Tolerating diet, pending final PT recommendation Objective - Exam Narrative Exam: GENERAL: Elderly -Lithuanian male lying on bed appeared to be in no discomfort. HEENT: Normocephalic. Atraumatic. No conjunctival congestion or icterus. Annemarie ent has very dry mucous membranes. NECK: Supple. Trachea midline. CHEST/LUNGS: Clear to auscultated bilaterally, breathing nonlabored. No wheezes crackles or rhonchi. HEART/CARDIOVASCULAR: Regular in rate and rhythm. S1 and S2 positive. ABDOMEN: Abdomen is soft, nontender. Patient has normal bowel sounds. SKIN: There is no rash. Warm and dry. NEURO: No focal motor deficit. Does not follow command, lethargic MUSCULOSKELETAL: No joint effusion or tenderness. EXTRIMITY: No edema, no cyanosis or clubbing. PSYCH: alert - Constitutional Vitals: Vital Signs - 12hr 11/24/20 11/25/20 11/25/20 23:41 03:53 05:39 Temperature 99.1 F 98.4 F Pulse Rate 86 75 75 Respiratory 18 18 Rate Blood Pressure 105/63 102/51 102/51 O2 Sat by Pulse 94 95 Oximetry 11/25/20 11/25/20 11/25/20 05:57 08:10 09:32 Temperature 97.6 F Pulse Rate 83 80 80 Respiratory 18 Rate Blood Pressure 136/76 136/76 O2 Sat by Pulse 91 Oximetry 11/25/20 11/25/20 09:33 10:00 Temperature Pulse Rate 80 80 Respiratory Rate Blood Pressure 136/76 O2 Sat by Pulse Oximetry - Labs CBC & Chem 7: 11/22/20 05:38 11/25/20 05:19 Labs: Abnormal lab results 11/25/20 Range/Units 05:19 Glucose 155 H (75-100) mg/dL HEART Score - HEART Score Troponin: Troponin T < 0.010 ng/mL (0.00-0.029) 11/17/20 10:32
[2020-11-25] MEDS: MIRTAZAPINE 15 MG TAB PO SCH (21:23)
[2020-11-26] MEDS: hydrALAZINE 25 MG TAB PO SCH ×3 (05:06→21:20)
[2020-11-26] MEDS ORDERED: traMADol 50 MG TAB PO PRN (05:20)
[2020-11-26] MEDS: FAMOTIDINE 20 MG TAB PO SCH ×2 (09:09→21:16)
[2020-11-26] MEDS: levETIRAcetam 500 MG/5 ML ORAL LIQD PO SCH ×2 (09:09→21:14)
[2020-11-26] MEDS: VALSARTAN 40 MG TAB PO SCH ×2 (09:11→21:21)
[2020-11-26] MEDS: amLODIPine 10 MG TAB PO SCH (09:11)
[2020-11-26] MEDS: POTASSIUM CHLORIDE ER 20 MEQ TAB PO SCH (09:12)
--- NOTE | 2020-11-26 13:57 | Progress Note ---
Assessment and Plan -- Acute encephalopathy Slowly improving Likely secondary to recurrent seizures UDS negative -- Status epilepticus Continue antiseizure medications CT head negative for any acute stroke-infarcts or hemorrhage EEG. Patient may need continuous EEG monitoring if EEG shows seizures. MRI brain with and without contrast cannot be obtained as patient's history could not be completed Follow neurology recommendation -- Respiratory failure with hypoxia Resolved -- STEPHANY Secondary to vasomotor nephropathy Continue to monitor renal function -- Hypertension Continue hydralazine Continue valsartan and amlodipine --Cocaine and alcohol dependence Patient to be counseled about cocaine dependence On [facility] protocol for alcohol dependence -- DVT prophylaxis On heparin and GI prophylaxis Brief history: 50-year-old male with a history of alcohol dependence who lives at a longterm. Since a.m. patient has been having recurrent seizures with altered sensorium. In the ER patient was having seizures and altered sensorium. Was intubated because of protection of airway. No fever or chills. No exposure to brand virus. No known exacerbating or relieving factors. Patient was started on antiseizure medications and transferred to the ICU. Hospital course 11/18. Patient remains intubated and is on sedatives. Critical care on board. Remains on Keppra. Neurology consultation placed 11/19. Patient extubated and transferred to the floors today. Remains on Keppra. He denies any history of seizures in the past awaiting EEG and MRI brain. Neurology evaluation 11/20. Patient refused MRI yesterday. MRI still to be performed today. Awaiting EEG. Neurology has been consulted. Continue Keppra for now. PT/OT pending. 11/21: Cannot obtain MRI as medical history could not be completed. Repeat CT head showed no acute changes. EEG pending. Noted neurology and psychiatry recommendation. Disposition plan most likely back to longterm when mental status stabilizes. 11/22: Remains lethargic and confused. Restraint in place. Continue supportive care. Started on diet, follow BMP, replete potassium. Wants to eat, will start on mechanical soft diet if clears by speech. 11/23: Patient remains stable but sleepy today. Continue supportive care, started on mechanical soft diet -poor oral intake. Continue to follow. When mental status improves DC to longterm 11/24: Patient is off restrain, appears to be withdrawn but answers question, does not make any eye contact. Patient with very poor oral intake. Continue on D5 normal saline for now. BMP in the morning. Clinically stable for discharge in a day or 2 11/25: Clinically improving, tolerating diet. Wait for final PT recommendation f or discharge planning 11/26: cont to follow, pending PT eval Subjective Date of service: 11/26/20 Interval history: Patient seen and examined. Medical records and medication list reviewed. No acute event overnight noted by the RN. Patient appears awake and alert but does not make any eye contact Discussed plan of care at bedside with patient's RN. Tolerating diet, pending final PT recommendation Objective - Exam Narrative Exam: GENERAL: Elderly -[place] male lying on bed appeared to be in no discomfort. HEENT: Normocephalic. Atraumatic. No conjunctival congestion or icterus. Patient has very dry mucous membranes. NECK: Supple. Trachea midline. CHEST/LUNGS: Clear to auscultated bilaterally, breathing nonlabored. No wheezes crackles or rhonchi. HEART/CARDIOVASCULAR: Regular in rate and rhythm. S1 and S2 positive. ABDOMEN: Abdomen is soft, nontender. Patient has normal bowel sounds. SKIN: There is no rash. Warm and dry. NEURO: No focal motor deficit. Does not follow command, lethargic MUSCULOSKELETAL: No joint effusion or tenderness. EXTRIMITY: No edema, no cyanosis or clubbing. PSYCH: alert - Constitutional Vitals: Vital Signs - 12hr 11/26/20 11/26/20 11/26/20 04:57 05:06 07:22 Temperature 97.8 F 97.9 F Pulse Rate 61 65 Respiratory 20 18 18 Rate Blood Pressure 117/72 103/64 O2 Sat by Pulse 99 96 Oximetry 11/26/20 11/26/20 11/26/20 09:11 09:45 11:43 Temperature Pulse Rate 65 65 71 Respiratory Rate Blood Pressure 103/64 105/69 O2 Sat by Pulse 98 Oximetry - Labs CBC & Chem 7: 11/22/20 05:38 11/25/20 05:19 Labs: Abnormal lab results 11/25/20 11/25/20 11/26/20 Range/Units 17:11 23:59 07:21 POC Glucose 125 H 114 H 125 H (70-105) mg/dL 11/26/20 Range/Units 11:42 POC Glucose 111 H (70-105) mg/dL HEART Score - HEART Score Troponin: Troponin T < 0.010 ng/mL (0.00-0.029) 11/17/20 10:32
[2020-11-26] MEDS: MIRTAZAPINE 15 MG TAB PO SCH (21:15)
[2020-11-26] MEDS: MAGNESIUM HYDROXIDE (MOM) ORAL LIQD UDC PO PRN (22:16)
[2020-11-27] MEDS: hydrALAZINE 25 MG TAB PO SCH (05:40)
[2020-11-27] MEDS: FAMOTIDINE 20 MG TAB PO SCH (09:36)
[2020-11-27] MEDS: levETIRAcetam 500 MG/5 ML ORAL LIQD PO SCH (09:36)
[2020-11-27] MEDS: amLODIPine 10 MG TAB PO SCH (09:37)
[2020-11-27] MEDS: VALSARTAN 40 MG TAB PO SCH (09:37)
[2020-11-27] MEDS: POTASSIUM CHLORIDE ER 20 MEQ TAB PO SCH (09:38)
--- NOTE | 2020-11-27 10:33 | Discharge Summary ---
Providers - Providers Date of Admission: 11/17/20 12:02 Date of discharge: 11/27/20 Attending physician: MARTINEZ MOSER 11/17/20 Consult to Case Management [CONS] Routine Services Needed at Discharge: Home Health Services Notified:: case management 11/17/20 18:44 Consult to Dietitian/Nutrition [CONS] Routine Physician Instructions: Assess nutrtn needs, initiate, modify, manage TF Reason For Exam: Reason for Consult: Write/Manage Tube Feeding Reason for Consult: Write/Manage Tube Feeding 11/18/20 00:15 Consult to Dietitian/Nutrition [CONS] Routine Physician Instructions: Assess nutrtn needs, initiate, modify, manage TF Reason For Exam: Reason for Consult: Write/Manage Tube Feeding Reason for Consult: Write/Manage Tube Feeding 11/18/20 08:21 Consult to Physician [CONS] Routine Comment: Consulting Provider: KRISTIE BRYSON Physician Instructions: Reason For Exam: Seizures 11/20/20 07:56 Consult to Physician [CONS] Routine Comment: Consulting Provider: MIMI TOVAR Physician Instructions: Reason For Exam: Seizure 11/20/20 15:56 Speech Therapy Evaluation and Treat [CONS] Routine Reason For Exam: HAD SWALLOWING SCREEN DONE 11/20/20 16:20 psychiatry consult [Consult to Mental Health] [CONS] Routine Reason For Exam: Agitation 11/21/20 11:22 Physical Therapy Evaluation and Treat [CONS] Routine Comment: Reason For Exam: Debility 11/22/20 07:00 Speech Therapy Evaluation and Treat [CONS] Routine Reason For Exam: npo Primary care physician: [employer] Hospitalization Condition: Stable Hospital course: Brief history: 50-year-old male with a history of alcohol dependence who lives at a retirement. Since a.m. patient has been having recurrent seizures with altered sensorium. In the ER patient was having seizures and altered sensorium. Was intubated because of protection of airway. No fever or chills. No exposure to coronavirus. No known exacerbating or relieving factors. Patient was started on antiseizure medications and transferred to the ICU. Daily clinical course 11/18. Patient remains intubated and is on sedatives. Critical care on board. Remains on Keppra. Neurology consultation placed 11/19. Patient extubated and transferred to the floors today. Remains on Keppra. He denies any history of seizures in the past awaiting EEG and MRI brain. Neurology evaluation 11/20. Patient refused MRI yesterday. MRI still to be performed today. Awaiting EEG. Neurology has been consulted. Continue Keppra for now. PT/OT pending. 11/21: Cannot obtain MRI as medical history could not be completed. Repeat CT head showed no acute changes. EEG pending. Noted neurology and psychiatry recommendation. Disposition plan most likely back to retirement when mental status stabilizes. 11/22: Remains lethargic and confused. Restraint in place. Continue supportive care. Started on diet, follow BMP, replete potassium. Wants to eat, will start on mechanical soft diet if clears by speech. 11/23: Patient remains stable but sleepy today. Continue supportive care, started on mechanical soft diet -poor oral intake. Continue to follow. When mental status improves DC to retirement 11/24: Patient is off restrain, appears to be withdrawn but answers question, does not make any eye contact. Patient with very poor oral intake. Continue on D5 normal saline for now. BMP in the morning. Clinically stable for discharge in a day or 2 11/25: Clinically improving, tolerating diet. Wait for final PT recommendation for discharge planning 11/26: cont to follow, pending PT eval 11/27: Patient clinically stable, tolerating diet. Blood pressure normotensive, discontinue all antihypertensives as patient not requiring any. Discharge to retirement if clears by PT today., Discharge diagnosis and Mx: -- Acute encephalopathy Slowly improved and now back to baseline Likely secondary to recurrent seizures UDS negative -- Status epilepticus Continue antiseizure medications CT head negative for any acute stroke-infarcts or hemorrhage EEG ordered MRI brain with and without contrast cannot be obtained as patient's history co uld not be completed Neurology recommended to continue Keppra 750 twice daily for now --Acute respiratory failure with hypoxia Likely due to status epilepticus, required intubation, now extubated and resolved -- STEPHANY, resolved Secondary to vasomotor nephropathy -- Hypertension, started on home medications I will discontinue steroids blood pressure was normotensive Continue dietary restriction --Cocaine and alcohol dependence Patient was counseled about cocaine dependence s/p [facility] protocol for alcohol dependence -- DVT prophylaxis On heparin and GI prophylaxis Disposition: DC/[place]-[facility] ANOTHER TYPE [facility] Final Discharge Diagnosis (Prints w/discharge instructions): Acute encephalopathy. Status epilepticus. Acute hypoxic respiratory failure. STEPHANY, vasomotor nephropathy. Cocaine and alcohol dependence Time spent for discharge: 34 minutes Core Measure Documentation - Palliative Care Palliative Care/ Comfort Measures: Not Applicable - Core Measures Any of the following diagnoses?: none Exam - Physical Exam Narrative exam: GENERAL: Elderly -Serbian male lying on bed appeared to be in no discomfort. HEENT: Normocephalic. Atraumatic. No conjunctival congestion or icterus. Patient has very dry mucous membranes. NECK: Supple. Trachea midline. CHEST/LUNGS: Clear to auscultated bilaterally, breathing nonlabored. No wheezes crackles or rhonchi. HEART/CARDIOVASCULAR: Regular in rate and rhythm. S1 and S2 positive. ABDOMEN: Abdomen is soft, nontender. Patient has normal bowel sounds. SKIN: There is no rash. Warm and dry. NEURO: No focal motor deficit. Follows command MUSCULOSKELETAL: No joint effusion or tenderness. EXTRIMITY: No edema, no cyanosis or clubbing. PSYCH: alert and awake - Constitutional Vitals: Temp Pulse Resp BP Pulse Ox 98.4 F 70 18 98/62 100 11/27/20 08:13 11/27/20 09:37 11/27/20 08:13 11/27/20 09:37 11/27/20 08:13 Plan Activity: advance as tolerated Weight Bearing Status: Weight Bear as Tolerated Diet: low fat Follow up with: DAVID NUÑEZ MD [Primary Care Provider] - 7 Days DAVID ANTUNEZ MD [Staff Physician] - 7 Days Prescriptions: Mirtazapine 7.5 mg PO QHS #30 tablet levETIRAcetam [Keppra TAB] 750 mg PO BID #60 tablet
[2020-11-27 13:03] VITALS: BP 105/66
[2020-11-27] MEDS: MAGNESIUM HYDROXIDE (MOM) ORAL LIQD UDC PO PRN (14:29)
== END 2020-11-27 18:17 | disposition home or self-care (01) | DRG 100 ==
LOC: ED 09:49 → CC1 12:02 → IMCU 11-18 19:45 → 4A 11-19 22:39
PROVIDERS: ADMIT Internal Medicine; ATTEND Internal Medicine
PROC: 0BH17EZ Insertion of Endotracheal Airway into Trachea, Via Natural or Artificial Opening (ICD-10-PCS; principal; 2020-11-17)
PROC: 5A1945Z Respiratory Ventilation, 24-96 Consecutive Hours (ICD-10-PCS; 2020-11-17)
PROC: 4A033R1 Measurement of Arterial Saturation, Peripheral, Percutaneous Approach (ICD-10-PCS; 2020-11-17)
DX: G40.901 Epilepsy, unspecified, not intractable, with status epilepticus (principal); J96.01 Acute respiratory failure with hypoxia; N17.0 Acute kidney failure with tubular necrosis; G93.40 Encephalopathy, unspecified; F14.20 Cocaine dependence, uncomplicated; F10.20 Alcohol dependence, uncomplicated; I10 Essential (primary) hypertension; Z71.51 Drug abuse counseling and surveillance of drug abuser
CPT/HCPCS: 31500; 36415; 36600; 70450; 71045; 80048; 80053; 80076; 80307; 80320; 81001; 82140; 82803; 82805; 82962; 83036; 83735; 84100; 84484; 85025; 85610; 85670; 85730; 87116; 93005; 94002; 94003; 94760; 96365; 96375; G0378; G0480; J0330; J0360; J1170; J1953; J2060; J2250; J2704; J3010; J3480; J7030

== ENCOUNTER 2020-12-26 18:31 | Emergency (ER) | payer SELFPAY ==
[2020-12-26] MEDS ORDERED: LORazepam 2 MG/ML VIAL IV PRN (23:26)
[2020-12-26] MEDS ORDERED: chlordiazePOXIDE 25 MG CAP PO PRN ×2 (23:26)
[2020-12-26] MEDS ORDERED: LORazepam 2 MG TAB PO PRN ×2 (23:26)
[2020-12-26] MEDS ORDERED: DEXTROSE 50% IN WATER (25GM) 50 ML VIAL IV PRN (23:30)
--- NOTE | 2020-12-26 23:35 | Emergency Department Report ---
<RED TAVAREZ - Last Filed: 12/27/20 01:02> ED General Adult HPI - General Chief complaint: Psych Stated complaint: im worried PUI?: No Time Seen by Provider: 12/26/20 23:11 Source: patient, EMS ( EMS documentation not available at time of chart dictation ), RN notes reviewed, old records reviewed Mode of arrival: Stretcher Limitations: No Limitations - History of Present Illness Initial comments: The patient was evaluated in the emergency department for symptoms described in the history of present illness. He/she was evaluated in the context of the global COVID-19 pandemic, which necessitated consideration that the patient might be at risk for infection with the virus that causes COVID-19. Institutional protocols and algorithms that pertain to the evaluation of patients at risk for COVID-19 are in a state of rapid change based on information released by regulatory bodies including the CDC and federal and state organizations. These policies and algorithms were followed during the gil sanches's care in the emergency department. Please note that these policies, procedures and recommendations changed on a rapid basis. This is a 60-year-old gentleman. This patient is not known to myself previously. This patient was admitted to this hospital last month, he apparently has a history of alcohol dependence, possible cocaine use, vasomotor nephropathy, and hypertension. The patient was intubated during his previous hospitalization, and eventually extubated, and convalesced appropriately. The patient presents to the ER today with a complaint of "more than going to have a seizure." The patient reports that ever since he was discharged, he is very concerned that he is going to have a seizure. He is also concerned about his current living situation, and states "I am living in [facility]." He did indicate that he was passively contemplating suicide. However, he states he has not tried to overdose, he does not have access to guns or to firearms. The patient further states it is very difficult to work, because he is so preoccupied about having a seizure, and he therefore states he does not have any money or finances to take care of his essentials. The patient has chronic arthritic pain, back pain. He denies loss of taste and smell. He denies hallucinations. The patient indicates he is not having headache, shortness of breath, chest pain, abdominal pain, or urinary symptoms. As per recent case management notes: CM received approval for PSYCHIATRIC to cover medications: Mirtazapine 7.5 mg and Keppra 750 mg, upon discharge one-time. Faxed approval forms to [facility], , phone [phone]. DCP received orders for home health PT no preference. [facility] notified Tian June Liaison of [facility] [phone] to process orders, that pt is disch arging home today. [facility] sent referral via [employer]. CM received order for Home Health PT as noted; also faxed request for medication cost to [facility], , phone [phone], as patient is not able to pay for his medication. CM will follow-up with Director once cost of medication is received, PSYCHIATRIC to cover initial cost of medication. Pastor Basil Zhang @ [phone] [place] [address] advised that patient is being discharged today. CM is presently requesting 30 day supply of medication from [facility]. Pastor Zhang is arranging transport from hospital to [address] [place] [address]. -: Gradual, days(s) Consistency: constant Improves with: none Worsens with: none - Related Data Previous Rx's Medication Instructions Recorded Last Taken Type Mirtazapine 7.5 mg PO QHS #30 tablet 11/23/20 Unknown Rx levETIRAcetam [Keppra TAB] 750 mg PO BID #60 tablet 11/27/20 Unknown Rx Allergies Allergy/AdvReac Type Severity Reaction Status Date / Time No Known Allergies Allergy Verified 11/17/20 10:54 ED Review of Systems Constitutional: other (Denies loss of taste and smell). denies: fever Eyes: denies: eye discharge ENT: denies: hearing loss Respiratory: denies: cough, shortness of breath Cardiovascular: denies: chest pain Gastrointestinal: denies: abdominal pain Genitourinary: denies: dysuria Musculoskeletal: back pain, arthralgia, myalgia Neurological: weakness Psychiatric: anxiety, suicidal thoughts Hematological/Lymphatic: denies: easy bleeding ED Past Medical Hx - Past Medical History Hx Hypertension: Yes Hx Seizures: Yes Additional medical history: unable to obtain medical history - Surgical History Additional Surgical History: unable to obtain medical history - Social History Smoking Status: Unknown if ever smoked - Medications Home Medications: Home Medications Medication Instructions Recorded Confirmed Last Taken Type Mirtazapine 7.5 mg PO QHS #30 tablet 11/23/20 Unknown Rx levETIRAcetam [Keppra TAB] 750 mg PO BID #60 tablet 11/27/20 Unknown Rx ED Physical Exam - General Limitations: No Limitations General appearance: alert, anxious - Head Head exam: Present: atraumatic, normocephalic - Eye Eye exam: Present: normal appearance, EOMI - ENT ENT exam: Present: normal exam, mucous membranes moist, normal external ear exam, other (Patient has poor dentition) - Neck Neck exam: Present: normal inspection, full ROM. Absent: tenderness, meningism us - Respiratory Respiratory exam: Present: normal lung sounds bilaterally. Absent: respiratory distress, wheezes, rales, rhonchi, stridor, chest wall tenderness, accessory muscle use, decreased breath sounds - Cardiovascular Cardiovascular Exam: Present: normal rhythm, bradycardia, normal heart sounds. Absent: tachycardia, irregular rhythm, systolic murmur, diastolic murmur, rubs, gallop - GI/Abdominal GI/Abdominal exam: Present: soft. Absent: distended, tenderness, guarding, rebound, rigid, pulsatile mass - Rectal Rectal exam: Present: deferred - Extremities Exam Extremities exam: Present: normal inspection, full ROM, other (2+ pulses noted in the bilateral upper and lower extremities. There is no palpable cord. negative Homans sign. Muscular compartments are soft. The pelvis is stable.). Absent: pedal edema, calf tenderness - Back Exam Back exam: Present: normal inspection. Absent: tenderness, CVA tenderness (R), CVA tenderness (L), paraspinal tenderness, vertebral tenderness - Neurological Exam Neurological exam: Present: alert, oriented X3, other (No facial droop. Tongue midline. Extraocular movements intact bilaterally. Facial sensation intact to light touch in V1, V2, V3 distribution bilaterally. 5 and a 5 strength in 4 extremities. Sensation intact to light touch in 4 extremities.). Absent: motor sensory deficit - Psychiatric Psychiatric exam: Present: anxious, suicidal ideation. Absent: homicidal ideation - Skin Skin exam: Present: warm, dry, intact, normal color. Absent: rash ED Course - Reevaluation(s) Reevaluation #1: 12/26/20 23:44 Differential diagnosis, including but not limited to: PTSD, cocaine dependence, alcohol dependence, suicidality, medical clearance for psychiatric placement Assessment and plan: 60-year-old gentleman, alert and oriented to name, place, location, who presents with a concern and complaint that he may have a seizure, and reports that he is feeling very preoccupied because of this, therefore, not able to work, and also dissatisfied with current living conditions. The patient does endorse some passive suicidality, however, he is calm and cooperative, albeit slightly disorganized. He does demonstrate some linear thought processes, such as stating that if he were able to work and earn money, he be able to have improved quality of life. Suspect that there may be a component of PTSD from recent ICU hospitalization. However, we will place the patient on hold status, obtain appropriate laboratory studies, Covid swab in anticipation of potential psychiatric placement, and continue recent medications. We will also initiate seizure precautions, Accu- Cheks, alcohol withdrawal protocol. I have discussed this plan of care with the patient, who verbalized understanding, and was in agreement with this plan of care. At the moment, he presents as alert, oriented, sober, without evidence of acute delirium, or encephalopathy. No active seizures noted on my examination at this time. Case management consultation also placed. Bradycardia reviewed and appreciated, asymptomatic, with next optimal blood pressure. No emergent intervention required for asymptomatic bradycardia at this time. Reevaluation #2: 12/27/20 01:02 Laboratory studies unremarkable. Pyuria appreciated. Macrobid ordered. Psychiatric consultation, and case management consultation are pending at this time. At the moment, the patient does not appear to have an immediate medical contraindication that would preclude psychiatric admission, evaluation, consultation and placement. ED Medical Decision Making - Lab Data Result diagrams: 12/26/20 23:59 12/26/20 23:59 Vital Signs 12/26/20 21:40 Temperature 98.0 F Pulse Rate 50 L Respiratory 18 Rate Blood Pressure 174/57 [Left] O2 Sat by Pulse 100 Oximetry Lab Results 12/26/20 12/26/20 12/26/20 Range/Units 23:44 23:44 23:59 WBC 6.4 (4.5-11.0) K/mm3 RBC 4.02 (3.65-5.03) M/mm3 Hgb 12.6 (11.8-15.2) gm/dl Hct 37.2 (35.5-45.6) % MCV 93 (84-94) fl MCH 31 (28-32) pg MCHC 34 (32-34) % RDW 13.2 (13.2-15.2) % Plt Count 172 (140-440) K/mm3 PT (12.2-14.9) Sec. INR (0.87-1.13) APTT (24.2-36.6) Sec. Sodium (137-145) mmol/L Potassium (3.6-5.0) mmol/L Chloride (98-107) mmol/L Carbon Dioxide (22-30) mmol/L Anion Gap mmol/L BUN (9-20) mg/dL Creatinine (0.8-1.3) mg/dL Estimated GFR ml/min BUN/Creatinine Ratio % Glucose (75-100) mg/dL Calcium (8.4-10.2) mg/dL Magnesium (1.7-2.3) mg/dL Total Bilirubin (0.1-1.2) mg/dL AST (5-40) units/L ALT (7-56) units/L Alkaline Phosphatase (35-129) units/L Total Creatine Kinase (55-170) units/L Total Protein (6.3-8.2) g/dL Albumin (3.9-5) g/dL Albumin/Globulin Ratio % Urine Color Yellow (Yellow) Urine Turbidity Slightly-cloudy (Clear) Urine pH 7.0 (5.0-7.0) Ur Specific Mulberry 1.015 (1.003-1.030) Urine Protein <15 mg/dl (Negative) mg/dL Urine Glucose (UA) Neg (Negative) mg/dL Urine Ketones Neg (Negative) mg/dL Urine Blood Neg (Negative) Urine Nitrite Pos (Negative) Urine Bilirubin Neg (Negative) Urine Urobilinogen 4.0 (<2.0) mg/dL Ur Leukocyte Esterase Lg (Negative) Urine WBC (Auto) 99.0 H (0.0-6.0) /HPF Urine RBC (Auto) 3.0 (0.0-6.0) /HPF U Epithel Cells (Auto) < 1.0 (0-13.0) /HPF Urine Mucus Few /HPF Salicylates (2.8-20.0) mg/dL Urine Opiates Screen Presumptive negative Urine Methadone Screen Presumptive negative Acetaminophen (10.0-30.0) ug/mL Ur Barbiturates Screen Presumptive negative Ur Phencyclidine Scrn Presumptive negative Ur Amphetamines Screen Presumptive negative U Benzodiazepines Scrn Presumptive negative Urine Cocaine Screen Presumptive negative U Marijuana (THC) Screen Presumptive negative Plasma/Serum Alcohol (0-0.07) % 12/26/20 12/26/20 12/26/20 Range/Units 23:59 23:59 23:59 WBC (4.5-11.0) K/mm3 RBC (3.65-5.03) M/mm3 Hgb (11.8-15.2) gm/dl Hct (35.5-45.6) % MCV (84-94) fl MCH (28-32) pg MCHC (32-34) % RDW (13.2-15.2) % Plt Count (140-440) K/mm3 PT 12.9 (12.2-14.9) Sec. INR 0.98 (0.87-1.13) APTT 30.8 (24.2-36.6) Sec. Sodium 142 (137-145) mmol/L Potassium 3.8 (3.6-5.0) mmol/L Chloride 104.5 (98-107) mmol/L Carbon Dioxide 29 (22-30) mmol/L Anion Gap 12 mmol/L BUN 10 (9-20) mg/dL Creatinine 0.9 (0.8-1.3) mg/dL Estimated GFR > 60 ml/min BUN/Creatinine Ratio 11 % Glucose 125 H (75-100) mg/dL Calcium 9.3 (8.4-10.2) mg/dL Magnesium 2.10 (1.7-2.3) mg/dL Total Bilirubin 0.40 (0.1-1.2) mg/dL AST 30 (5-40) units/L ALT 38 (7-56) units/L Alkaline Phosphatase 99 (35-129) units/L Total Creatine Kinase 73 (55-170) units/L Total Protein 6.9 (6.3-8.2) g/dL Albumin 4.0 (3.9-5) g/dL Albumin/Globulin Ratio 1.4 % Urine Color (Yellow) Urine Turbidity (Clear) Urine pH (5.0-7.0) Ur Specific Mulberry (1.003-1.030) Urine Protein (Negative) mg/dL Urine Glucose (UA) (Negative) mg/dL Urine Ketones (Negative) mg/dL Urine Blood (Negative) Urine Nitrite (Negative) Urine Bilirubin (Negative) Urine Urobilinogen (<2.0) mg/dL Ur Leukocyte Esterase (Negative) Urine WBC (Auto) (0.0-6.0) /HPF Urine RBC (Auto) (0.0-6.0) /HPF U Epithel Cells (Auto) (0-13.0) /HPF Urine Mucus /HPF Salicylates < 0.3 L (2.8-20.0) mg/dL Urine Opiates Screen Urine Methadone Screen Acetaminophen (10.0-30.0) ug/mL Ur Barbiturates Screen Ur Phencyclidine Scrn Ur Amphetamines Screen U Benzodiazepines Scrn Urine Cocaine Screen U Marijuana (THC) Screen Plasma/Serum Alcohol (0-0.07) % 12/26/20 12/26/20 Range/Units 23:59 23:59 WBC (4.5-11.0) K/mm3 RBC (3.65-5.03) M/mm3 Hgb (11.8-15.2) gm/dl Hct (35.5-45.6) % MCV (84-94) fl MCH (28-32) pg MCHC (32-34) % RDW (13.2-15.2) % Plt Count (140-440) K/mm3 PT (12.2-14.9) Sec. INR (0.87-1.13) APTT (24.2-36.6) Sec. Sodium (137-145) mmol/L Potassium (3.6-5.0) mmol/L Chloride (98-107) mmol/L Carbon Dioxide (22-30) mmol/L Anion Gap mmol/L BUN (9-20) mg/dL Creatinine (0.8-1.3) mg/dL Estimated GFR ml/min BUN/Creatinine Ratio % Glucose (75-100) mg/dL Calcium (8.4-10.2) mg/dL Magnesium (1.7-2.3) mg/dL Total Bilirubin (0.1-1.2) mg/dL AST (5-40) units/L ALT (7-56) units/L Alkaline Phosphatase (35-129) units/L Total Creatine Kinase (55-170) units/L Total Protein (6.3-8.2) g/dL Albumin (3.9-5) g/dL Albumin/Globulin Ratio % Urine Color (Yellow) Urine Turbidity (Clear) Urine pH (5.0-7.0) Ur Specific Mulberry (1.003-1.030) Urine Protein (Negative) mg/dL Urine Glucose (UA) (Negative) mg/dL Urine Ketones (Negative) mg/dL Urine Blood (Negative) Urine Nitrite (Negative) Urine Bilirubin (Negative) Urine Urobilinogen (<2.0) mg/dL Ur Leukocyte Esterase (Negative) Urine WBC (Auto) (0.0-6.0) /HPF Urine RBC (Auto) (0.0-6.0) /HPF U Epithel Cells (Auto) (0-13.0) /HPF Urine Mucus /HPF Salicylates (2.8-20.0) mg/dL Urine Opiates Screen Urine Methadone Screen Acetaminophen 5.0 L (10.0-30.0) ug/mL Ur Barbiturates Screen Ur Phencyclidine Scrn Ur Amphetamines Screen U Benzodiazepines Scrn Urine Cocaine Screen U Marijuana (THC) Screen Plasma/Serum Alcohol < 0.01 (0-0.07) % ED Disposition Clinical Impression: General medical exam Disposition: DC-01 TO HOME OR SELFCARE Is pt being admited?: No Does the pt Need Aspirin: No Condition: Good <MAXINE DOUGLAS - Last Filed: 12/27/20 13:09> ED Review of Systems ROS: Stated complaint: im worried Other details as noted in HPI ED Course Vital Signs 12/26/20 12/27/20 12/27/20 21:40 01:13 02:13 Temperature 98.0 F Pulse Rate 50 L Respiratory 18 18 18 Rate Blood Pressure 174/57 [Left] O2 Sat by Pulse 100 Oximetry 12/27/20 12/27/20 05:00 09:51 Temperature 98.0 F 97.5 F L Pulse Rate 55 L 51 L Respiratory 18 Rate Blood Pressure 135/67 143/81 [Left] O2 Sat by Pulse 100 100 Oximetry ED Medical Decision Making - Lab Data Result diagrams: 12/26/20 23:59 12/26/20 23:59 - Medical Decision Making Patient is clear for discharge per psychiatric team. I have ordered case management consultation in order to assist with prescription medications. Patient's main concern is affording his antiepileptic medicine. He is afraid of having a seizure. He received 30-day supply prescription after last admission. Critical care attestation.: If time is entered above; I have spent that time in minutes in the direct care of this critically ill patient, excluding procedure time. ED Disposition Is pt being admited?: No Does the pt Need Aspirin: No
[2020-12-26] MEDS ORDERED: HALOPERIDOL LACTATE 5 MG/1 ML INJ IM ONE (23:58)
[2020-12-26] MEDS ORDERED: LORazepam 2 MG/ML VIAL IM PRN (23:59)
[2020-12-26] MEDS ORDERED: HALOPERIDOL LACTATE 5 MG/1 ML INJ IM PRN (23:59)
[2020-12-27 00:07] LABS: Amphetamine Screen,Urine PRESUMPTIVE NEGATIVE; Benzodiazepines Screen,Urine PRESUMPTIVE NEGATIVE; Cannabinoid Screen,Urine PRESUMPTIVE NEGATIVE; Cocaine Screen,Urine PRESUMPTIVE NEGATIVE; Methadone Screen,Urine PRESUMPTIVE NEGATIVE; Opiate Screen,Urine PRESUMPTIVE NEGATIVE
[2020-12-27 00:15] LABS: Bilirubin,Urine NEG (Negative); Blood,Urine NEG (Negative); Color,Urine Yellow (Yellow); Mucus,Urine FEW /HPF; Protein,Urine <15 mg/dL mg/dL (Negative)
[2020-12-27 00:15] LABS: Hematocrit 37.2 % (35.5-45.6); Hemoglobin 12.6 gm/dl (11.8-15.2); Mean Corpuscular HGB Conc 34 % (32-34); Mean Corpuscular Volume 93 fl (84-94); Platelet Count 172 K/mm3 (140-440); Red Blood Count 4.02 M/mm3 (3.65-5.03); Red Cell Distribution Width 13.2 % (13.2-15.2)
[2020-12-27 00:26] LABS: INR 0.98 (0.87-1.13)
[2020-12-27 00:27] LABS: Partial Thromboplastin Time 30.8 Sec. (24.2-36.6)
[2020-12-27 00:36] LABS: Alanine Aminotransferase 38 units/L (7-56); BUN/Creatinine Ratio 11; Blood Urea Nitrogen 10 mg/dL (9-20); Calcium 9.3 mg/dL (8.4-10.2); Hemolysis Index 5
[2020-12-27] MEDS ORDERED: ACETAMINOPHEN 325 MG TAB PO PRN (01:07)
[2020-12-27] MEDS ORDERED: IBUPROFEN 400 MG TAB PO PRN (01:08)
[2020-12-27] MEDS: NITROFURANTOIN MONOHYD/M-CRYST 100 MG CAP PO SCH ×2 (05:00→12:50)
--- NOTE | 2020-12-27 09:30 | Consultation ---
History of Present Illness - Reason for Consult Consult date: 12/27/20 Reason for consult: MHE Requesting physician: RED TAVAREZ - History of Present Psychiatric Illness Per ED Provider: The patient presents to the ER today with a complaint of "more than going to have a seizure." The patient reports that ever since he was d ischarged, he is very concerned that he is going to have a seizure. He is also concerned about his current living situation, and states "I am living in [facility]." He did indicate that he was passively contemplating suicide. However, he states he has not tried to overdose, he does not have access to guns or to firearms. The patient further states it is very difficult to work, because he is so preo ccupied about having a seizure, and he therefore states he does not have any money or finances to take care of his essentials. The patient has chronic arthritic pain, back pain. He denies loss of taste and smell. He denies hallucinations. The patient indicates he is not having headache, shortness of breath, chest pain, abdominal pain, or urinary symptoms. PSYCH HPI Patient is a 60-year-old currently and unemployed -Serbian male who resides with a friend with no significant past psychiatric history but has medical history of epilepsy who presented to the ED requesting medical help with starting information about what is causing needs to be having seizures what he can do to prevent seizures and wanting access to see a doctor. Patient states that he surprised that he is committed to a psychiatric facility, that since he was here he was last seen here in the hospital and evaluated he has been having seizures but due to him not having any income or insurance he does not have access to see a primary care doctor in patient's own words or even see a specialist could better explain to him what is going on medically with him. She reportedly felt like this is the wrong place to come he could have gone to [facility], and he would have given him access to care anyways but rather he has been committed to psychiatric hold against his own will PAST PSYCHIATRIC HISTORY Diagnoses: none reported Suicide attempts or Self-harm behavior: none reported Prior psychiatric hospitalizations: none reported Substance Abuse history:none reported Previous psychiatric medications tried: none reported Outpatient treatment: none reported PAST MEDICAL HISTORY: Epilepsy Family Psychiatric History: None reported or documented SOCIAL HISTORY Marital Status: Living Arrangements: With a friend Employment Status: Unemployed Access to guns/weapons: None report Education: 11th grade History of Abuse: none reported Legal History: none reported REVIEW OF SYSTEMS Constitutional: Negative for weight loss ENT: Negative for stridor Respiratory: Negative for cough or hemoptysis All other systems reviewed and are negative MENTAL STATUS EXAMINATION General Appearance and Behavior: Age appropriate, good hygiene, wearing appropriate clothes, good eye contact, cooperative polite with questioning. Cooperation: Participating/engaged Psychomotor Behavior: unremarkable and within normal limits Mood: Good Affect and affective range: congruent with mood Thought Process: Fluent/Logical, Thought Content: Within reality, Speech: Normal volume, Regular rate and rhythm, Intellectual Functioning: Average Suicidal Ideation: Denies SI Homicidal Ideation: Denies HI Impulse Control: Unimpaired Insight and Judgment: Normal insight and judgment, Memory: Normal, Attention: Normal, Orientation: Alert, oriented, Assessment and Plan - Psychiatric problem (1) Encounter for screening examination for mental health and behavioral disorders Current Visit: Yes Status: Acute Z13.30 Treatment Plan MEDICATIONS: Risks, benefits and alternatives of medications discussed with the patient, questions answered and consent obtained from patient. PSYCHOTHERAPY: Supportive psychotherapy provided MEDICAL: Per primary team DELIRIUM PRECAUTIONS: Please re-orient patient frequently, keep lights on during the day, and minimize benzodiazepines and opiates as these medications could worsen patient's confusion. 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 Case discussed with Dr. Ayala who agrees with current disposition FOLLOW-UP: Will sign off Thank you for the consult. Please contact with any questions and/or concerns. Medications and Allergies Allergies Allergy/AdvReac Type Severity Reaction Status Date / Time No Known Allergies Allergy Verified 11/17/20 10:54 Home Medications Medication Instructions Recorded Confirmed Last Taken Type Mirtazapine 7.5 mg PO QHS #30 tablet 11/23/20 Unknown Rx levETIRAcetam [Keppra TAB] 750 mg PO BID #60 tablet 11/27/20 Unknown Rx Active Meds: Active Medications Acetaminophen (Acetaminophen 325 Mg Tab) 650 mg PO Q6HR PRN PRN Reason: PAIN Last Admin: 12/27/20 01:13 Dose: 650 mg Documented by: Amlodipine Besylate (Amlodipine 5 Mg Tab) 5 mg PO QDAY JOSE G Chlordiazepoxide HCl (Chlordiazepoxide 25 Mg Cap) 50 mg PO Q1HR PRN PRN Reason: CIWA-Ar 8-15 Chlordiazepoxide HCl (Chlordiazepoxide 25 Mg Cap) 100 mg PO Q1HR PRN PRN Reason: CIWA-Ar 16-25 Dextrose (Dextrose 50% In Water (25gm) 50 Ml Vial) 50 gm IV Q30MIN PRN; Protocol PRN Reason: Hypoglycemia Folic Acid (Folic Acid 1 Mg Tab) 1 mg PO QDAY [facility] Haloperidol Lactate (Haloperidol Lactate 5 Mg/1 Ml Inj) 5 mg IM Q6HR PRN PRN Reason: Agitation Ibuprofen (Ibuprofen 400 Mg Tab) 400 mg PO Q6HR PRN PRN Reason: Pain , Severe (7-10) Levetiracetam (Levetiracetam 500 Mg/5 Ml Oral Liqd) 750 mg PO BID [facility] Last Admin: 12/27/20 00:00 Dose: 750 mg Documented by: Lorazepam (Lorazepam 2 Mg Tab) 2 mg PO Q1HR PRN PRN Reason: CIWA-Ar 8-15 Lorazepam (Lorazepam 2 Mg Tab) 4 mg PO Q1HR PRN PRN Reason: CIWA-Ar 16-25 Lorazepam (Lorazepam 2 Mg/Ml Vial) 4 mg IV Q15MIN PRN PRN Reason: CIWA-Ar >25 Lorazepam (Lorazepam 2 Mg/Ml Vial) 2 mg IM Q4HR PRN PRN Reason: Agitation Mirtazapine (Mirtazapine 15 Mg Tab) 7.5 mg PO QHS [facility] Multivitamins (Multivitamins ,Therapeutic Tab) 1 each PO QDAY [facility] Nitrofurantoin Macrocrystals (Nitrofurantoin Monohyd/M-Cryst 100 Mg Cap) 100 mg PO BID [facility] Stop: 01/02/21 10:01 Last Admin: 12/27/20 05:00 Dose: 100 mg Documented by: Mental Status Exam - Vital signs Last Vital Signs Temp 98.0 F 12/27/20 05:00 Pulse 55 L 12/27/20 05:00 Resp 18 12/27/20 05:00 BP 135/67 12/27/20 05:00 Pulse Ox 100 12/27/20 05:00 Results Result Diagrams: 12/26/20 23:59 12/26/20 23:59 Abnormal lab results 12/26/20 12/26/20 12/26/20 Range/Units 23:44 23:59 23:59 Glucose 125 H (75-100) mg/dL Urine WBC (Auto) 99.0 H (0.0-6.0) /HPF Salicylates < 0.3 L (2.8-20.0) mg/dL Acetaminophen (10.0-30.0) ug/mL 12/26/20 Range/Units 23:59 Glucose (75-100) mg/dL Urine WBC (Auto) (0.0-6.0) /HPF Salicylates (2.8-20.0) mg/dL Acetaminophen 5.0 L (10.0-30.0) ug/mL All other labs normal. Assessment and Plan - Psychiatric problem (1) Encounter for screening examination for mental health and behavioral disorders Current Visit: Yes Status: Acute
[2020-12-27 09:54] VITALS: BP 143/81
[2020-12-27] MEDS ORDERED: FOLIC ACID 1 MG TAB PO SCH (10:00)
[2020-12-27] MEDS ORDERED: MULTIVITAMINS ,THERAPEUTIC TAB PO SCH (10:00)
[2020-12-27] MEDS ORDERED: amLODIPine 5 MG TAB PO SCH (10:00)
--- NOTE | 2020-12-27 10:40 | Event Note ---
S: "I have a lot going on." O: stable vital signs, NAD A: alcohol dependence, suicidal ideation, seizure disorder, cocaine dependence Home medications ordered by ED provider on intial encounter P: awaiting treatment recommendations by MH team
[2020-12-27] MEDS: levETIRAcetam 500 MG/5 ML ORAL LIQD PO SCH ×2 (12:50)
[2020-12-27] MEDS ORDERED: MIRTAZAPINE 15 MG TAB PO SCH (22:00)
== END 2020-12-27 15:30 | disposition home or self-care (01) ==
LOC: ED 18:31
DX: G40.909 Epilepsy, unspecified, not intractable, without status epilepticus (principal); Z00.00 Encounter for general adult medical examination without abnormal findings; Z79.899 Other long term (current) drug therapy; Z20.822 Contact with and (suspected) exposure to COVID-19
CPT/HCPCS: 36415; 80053; 80307; 81001; 82550; 83735; 85027; 85610; 85730; 87086; 99284; J1630; U0003; 80320; G0480

== ENCOUNTER 2021-01-01 12:55 | Emergency (ER) | payer SELFPAY ==
[2021-01-01 13:54] VITALS: BP 121/80
== END 2021-01-01 14:30 | disposition left against medical advice (07) ==
LOC: ED 12:55
DX: Z00.8 Encounter for other general examination (principal); Z53.21 Procedure and treatment not carried out due to patient leaving prior to being seen by health care provider

== ENCOUNTER 2021-02-08 20:29 | Emergency (ER) | payer SELFPAY ==
[2021-02-08 21:42] VITALS: BP 134/75
[2021-02-09 01:50] LABS: Bacteria,Urine 1+ /HPF (Negative); Bilirubin,Urine NEG (Negative); Blood,Urine NEG (Negative); Color,Urine Yellow (Yellow); Mucus,Urine FEW /HPF; Protein,Urine <15 mg/dL mg/dL (Negative)
== END 2021-02-09 01:45 | disposition left against medical advice (07) ==
LOC: ED 20:29
DX: N39.0 Urinary tract infection, site not specified (principal); Z53.21 Procedure and treatment not carried out due to patient leaving prior to being seen by health care provider
CPT/HCPCS: 81001

== ENCOUNTER 2022-02-18 09:44 | Emergency (ER) | payer SELFPAY ==
[2022-02-18 10:13] VITALS: BP 130/73
[2022-02-18] MEDS ORDERED: HEPARIN 10,000 UNITS/10 ML VIAL IV PRN (10:13)
[2022-02-18 10:57] LABS: Basophils % (Auto) 0.4 % (0.0-1.8); Eosinophils # (Auto) 0.1 K/mm3 (0.0-0.4); Eosinophils % (Auto) 2.1 % (0.0-4.3); Hematocrit 41.1 % (35.5-45.6); Hemoglobin 13.7 gm/dl (11.8-15.2); Lymphocytes # (Auto) 2.5 K/mm3 (1.2-5.4); Lymphocytes % (Auto) 46.9 % (13.4-35.0); Mean Corpuscular HGB Conc 33 % (32-34); Mean Corpuscular Volume 96 fl (84-94); Monocytes # (Auto) 0.7 K/mm3 (0.0-0.8); Monocytes % (Auto) 12.8 % (0.0-7.3); Platelet Count 177 K/mm3 (140-440); Red Blood Count 4.26 M/mm3 (3.65-5.03); Red Cell Distribution Width 12.7 % (13.2-15.2)
--- NOTE | 2022-02-18 11:14 | XRay Report ---
CHEST 2 VIEWS INDICATION / CLINICAL INFORMATION: Dysrhythmia. COMPARISON: 01/18/2021 FINDINGS: SUPPORT DEVICES: None. HEART / MEDIASTINUM: No significant abnormality. LUNGS / PLEURA: No significant pulmonary or pleural abnormality. No pneumothorax. ADDITIONAL FINDINGS: No significant additional findings. IMPRESSION: 1. No acute findings. Signer Name: Lito Palma MD Signed: 02/18/2022 11:09 AM Workstation Name: [employer]
[2022-02-18 11:45] LABS: Alanine Aminotransferase 45 units/L (7-56); Albumin 4.3 g/dL (3.9-5); BUN/Creatinine Ratio 15; Blood Urea Nitrogen 12 mg/dL (9-20); Calcium 9.3 mg/dL (8.4-10.2); Hemolysis Index 27
--- NOTE | 2022-02-19 10:04 | Electrocardiograph Report ---
[facility] Test Date: 2022-02-18 Test Time: 10:18:12 Pat Name: ELIO DEY Department: Room: Gender: M Counselor At Law: PAM : 1960 Requested By: ED DOC Order Number: [id number] Reading MD: Ralph Moses Measurements Intervals Lewis Rate: 63 P: 65 OK: 169 QRS: 54 QRSD: 74 T: -4 QT: 429 QTc: 439 Interpretive Statements Slow sinus arrhythmia Sinus pause Consider left ventricular hypertrophy No previous ECG available for comparison Electronically Signed On 02-19-2022 10:03:31 EDT by Ralph Moses
== END 2022-02-19 02:50 | disposition left against medical advice (07) ==
LOC: ED 09:44
DX: I10 Essential (primary) hypertension (principal); Z53.21 Procedure and treatment not carried out due to patient leaving prior to being seen by health care provider
CPT/HCPCS: 36415; 71046; 80053; 84484; 85025; 93005